=== PATIENT | male | born 1965 | race Caucasian/White ===

== ENCOUNTER 2016-10-12 19:36 | Emergency (ER) | payer OTHER, SELFPAY ==
[~2016-10-12] VITALS: Ht 172.7 cm; Wt 63.6 kg
[2016-10-12 19:37] VITALS: BP 110/77
[2016-10-12] MEDS ORDERED: TOPR100T PO (20:01)
[2016-10-12] MEDS ORDERED: OMEP20CA3 PO (20:01)
[2016-10-12] MEDS ORDERED: XANA0.25 PO (20:01)
== END 2016-10-12 20:40 | disposition home or self-care (01) ==
LOC: M ED 19:36
DX: F10.129 Alcohol abuse with intoxication, unspecified (principal)

== ENCOUNTER 2016-11-15 18:16 | Emergency (ER) | payer OTHER ==
[~2016-11-15] VITALS: Ht 172.7 cm; Wt 68.2 kg
[2016-11-15 18:16] VITALS: BP 136/98
[~2016-11-15 18:16] MED LIST: OMEP20CA3 PO; TOPR100T PO; XANA0.25 PO
[2016-11-15] MEDS ORDERED: HYDR-3713 (18:26)
[2016-11-15] MEDS ORDERED: ZOLP10TA2 (18:26)
--- NOTE | 2016-11-15 23:20 | REP ---
MANDIBLE COMPLETE: 11/15/2016. Clinical history: Trauma. Findings: Six views are provided. The alveolar ridge, rami, condyles and the submental region of the mandible were grossly intact. I see no definite subluxation or dislocation of the condyles from the condylar fossa. I see dentition for both the alveolar ridges of the mandible and maxilla. Degenerative changes are seen in the cervical spine. Septum is generally midline. No orbital floor blowout fracture or air-fluid levels in the maxillary sinuses. The frontal and ethmoid sinuses are grossly intact. Impression: 1. No gross evidence for mandibular fracture. The nasal septum was midline. There is no visible fracture orbital floors, nasal bones. No air-fluid levels in the sinuses on these images. Signed by Ihsan Carrasco MD 11/20/2016 01:37 P
== END 2016-11-15 20:40 | disposition left against medical advice (07) ==
LOC: M ED 18:16
DX: S00.83XA Contusion of other part of head, initial encounter (principal); S80.211A Abrasion, right knee, initial encounter; W01.0XXA Fall on same level from slipping, tripping and stumbling without subsequent striking against object, initial encounter; Y92.89 Other specified places as the place of occurrence of the external cause; Y93.89 Activity, other specified; Y99.8 Other external cause status; F10.10 Alcohol abuse, uncomplicated

== ENCOUNTER 2017-01-12 13:34 | Outpatient (RCR) | payer OTHER ==
[~2017-01-12 13:34] MED LIST changes: +HYDR-3713; +ZOLP10TA2
== END 2017-01-25 ==
LOC: M OUTALCOH 13:34
PROVIDERS: ATTEND Psychiatry & Neurology Psychiatry
DX: F10.20 Alcohol dependence, uncomplicated (principal); F17.200 Nicotine dependence, unspecified, uncomplicated

== ENCOUNTER 2017-01-26 11:00 | Outpatient (RCR) | payer OTHER | END 2017-02-25 | LOC: M OUTALCOH 11:00 | DX: F10.20 Alcohol dependence, uncomplicated (principal); F17.200 Nicotine dependence, unspecified, uncomplicated ==

== ENCOUNTER 2018-01-19 22:59 | Emergency (ER) | payer OTHER ==
[2018-01-19] MEDS ORDERED: LORazepam 2 MG/ML VIAL (J2060) As Ordered (23:32)
[2018-01-19] MEDS ORDERED: HALOPERIDOL 5 MG/ML VIAL (J1630) As Ordered (23:32)
[2018-01-19 23:39] LABS: HEMATOCRIT 40.2 % (42.0-52.0); MEAN CORPUSCULAR HEMOGLOBIN 28.6 pg (27.0-33.0); MEAN CORPUSCULAR HGB CONC 34.8 g/dl (32.0-36.5); PLATELET COUNT, AUTOMATED 418 10^3/uL (150-450); RED CELL DISTRIBUTION WIDTH 12.3 % (11.5-14.5); WHITE BLOOD COUNT 8.9 10^3/uL (4.0-10.0)
[2018-01-19] MEDS: NS 1,000 ML IV (23:50)
[2018-01-19] MEDS: HALOPERIDOL 5 MG/ML VIAL (J1630) IM (23:50)
[2018-01-19] MEDS: diphenhydrAMINE INJ 50MG/ML VIAL (J1200) IM (23:50)
[2018-01-19] MEDS: LORazepam 2 MG/ML VIAL (J2060) IM (23:50)
[2018-01-20 00:14] LABS: ACETAMINOPHEN LEVEL < 2.0 UG/ML (10.0-30.0); ALBUMIN 3.8 GM/DL (3.2-5.2); ALBUMIN/GLOBULIN RATIO 0.95 (1.00-1.93); ALKALINE PHOSPHATASE 104 U/L (45-117); ALT/SGPT 28 U/L (12-78); ANION GAP 13 MEQ/L (8-16); AST/SGOT 49 U/L (7-37); BILIRUBIN,DIRECT < 0.1 MG/DL (0.0-0.2); BILIRUBIN,TOTAL 0.1 MG/DL (0.2-1.0); BLOOD UREA NITROGEN 11 MG/DL (7-18); CALCIUM LEVEL 8.5 MG/DL (8.5-10.1); CARBON DIOXIDE LEVEL 21 MEQ/L (21-32); CHLORIDE LEVEL 106 MEQ/L (98-107); CREATININE FOR GFR 0.96 MG/DL (0.70-1.30); ETHYL ALCOHOL (ETHANOL) 0.454 % (0.000-0.010); GLOMERULAR FILTRATION RATE > 60.0 (>56); GLUCOSE, FASTING 104 MG/DL (70-100); POTASSIUM SERUM 3.5 MEQ/L (3.5-5.1); SALICYLATE LEVEL 4.4 MG/DL (5.0-30.0); SODIUM LEVEL 140 MEQ/L (136-145); TOTAL PROTEIN 7.8 GM/DL (6.4-8.2)
[2018-01-20] MEDS: LORazepam 2 MG/ML VIAL (J2060) IV ×4 (00:42→02:00)
[2018-01-20 03:54] LABS: AMPHETAMINES LEVEL URINE NEGATIVE (NEGATIVE); BARBITURATES URINE NEGATIVE (NEGATIVE); BENZODIAZEPINES URINE NEGATIVE (NEGATIVE); CANNABINOIDS URINE NEGATIVE (NEGATIVE); COCAINE METABOLITE URINE NEGATIVE (NEGATIVE); METHADONE URINE NEGATIVE (NEGATIVE); OPIATES URINE NEGATIVE (NEGATIVE); PHENCYCLIDINE URINE NEGATIVE (NEGATIVE)
== END 2018-01-20 16:29 | disposition home or self-care (01) ==
LOC: M ED 22:59
DX: F10.129 Alcohol abuse with intoxication, unspecified (principal); Z79.899 Other long term (current) drug therapy; Z91.040 Latex allergy status
CPT/HCPCS: J1200

== ENCOUNTER 2018-01-26 04:42 | Emergency (ER) | payer OTHER ==
[2018-01-26] MEDS: TETANUS/DIPHTHERIA TOX ADSORB ADULT 0.5ML SYR/VIAL (90714) IM (06:00)
[2018-01-26] MEDS: DERMABOND TOPICAL SKIN ADHESIVE TOP (06:00)
== END 2018-01-26 07:48 | disposition home or self-care (01) ==
LOC: M ED 04:42
DX: S01.81XA Laceration without foreign body of other part of head, initial encounter (principal); Z72.89 Other problems related to lifestyle; W01.0XXA Fall on same level from slipping, tripping and stumbling without subsequent striking against object, initial encounter; Y35.893A Legal intervention involving other specified means, suspect injured, initial encounter; Y92.410 Unspecified street and highway as the place of occurrence of the external cause; I10 Essential (primary) hypertension; K21.9 Gastro-esophageal reflux disease without esophagitis; F32.9 Major depressive disorder, single episode, unspecified; Z91.040 Latex allergy status; Z79.899 Other long term (current) drug therapy; Z79.2 Long term (current) use of antibiotics
CPT/HCPCS: 70450

== ENCOUNTER → 2018-07-02 | Outpatient (CLI) | payer MEDICAID, SELFPAY ==
[~2018-07-02] MED LIST changes: +ACET-683 PO; +AMOX500C; +HYDR-3363 PO; +IBUP-1022 PO; +IBUP80TA; +LISI-538 PO; +VENL100T; +VOLT1GEL15 TOP
== END ==
LOC: M OUTALCOH 11:37
PROVIDERS: ATTEND Psychiatry & Neurology Psychiatry
DX: F10.20 Alcohol dependence, uncomplicated (principal)

== ENCOUNTER 2018-07-03 16:50 | Inpatient (IN) | payer MEDICAID ==
[~2018-07-03] VITALS: Ht 172.7 cm; Wt 88.1 kg
[~2018-07-03 16:50] MED LIST changes: -ACET-683 PO; -IBUP-1022 PO; -VOLT1GEL15 TOP
[2018-07-03] MEDS ORDERED: HumuLIN R (REGULAR) INSULIN (NovoLIN R) **100U/ML** PER UNIT IV STA (17:17)
[2018-07-03] MEDS ORDERED: SODIUM BICARBONATE 8.4% INJ 50 ML SYRINGE IV STA (17:17)
[2018-07-03 17:19] LABS: BASO # 0.1 10^3/uL (0.0-0.2); BASO % 0.3 % (0.0-1.0); HEMATOCRIT 39.3 % (42.0-52.0); HEMOGLOBIN 13.3 g/dl (13.5-17.5); LYMPH # 1.2 10^3/uL (1.5-4.5); LYMPH % 6.4 % (24.0-44.0); MEAN CORPUSCULAR HEMOGLOBIN 28.9 pg (27.0-33.0); MEAN CORPUSCULAR HGB CONC 33.8 g/dl (32.0-36.5); MEAN CORPUSCULAR VOLUME 85.2 fl (80.0-96.0); MONO # 0.5 10^3/uL (0.0-0.8); MONO % 2.5 % (0.0-5.0); NEUTROPHILS # 16.8 10^3/uL (1.8-7.7); PLATELET COUNT, AUTOMATED 449 10^3/uL (150-450); RED BLOOD COUNT 4.61 10^6/uL (4.30-6.10); WHITE BLOOD COUNT 18.7 10^3/uL (4.0-10.0)
[2018-07-03] MEDS ORDERED: FUROSEMIDE 40 MG/4 ML VIAL (J1940) IV ONE (17:30)
[2018-07-03] MEDS ORDERED: ALBUTEROL SULFATE 2.5 MG/0.5 ML INH NEB SOLN NEB ONE (17:30)
[2018-07-03] MEDS ORDERED: CALCIUM CHLORIDE 10% 1 GM in D5W 100 ML IV ONE (17:30)
[2018-07-03] MEDS ORDERED: PATIROMER SORBITEX CALCIUM 8.4 GM POWDER PACKET (VELTASSA) PO ONE (17:30)
--- NOTE | 2018-07-03 17:45 | REP ---
REASON FOR EXAM: Chest pain. COMPARISON: 11/06/2006, a two view exam. FINDINGS: The technique utilized in obtaining the radiograph has magnified the cardiac silhouette and accentuated the interstitial markings. The superior mediastinal structures are midline. The cardiac silhouette is unremarkable in size, shape, and position. The diaphragmatic surfaces of the lungs are regular, and the costophrenic angles are clear. The pulmonary mata are clear. The imaged osseous structures are intact. No significant change from the prior exam other than technique. IMPRESSION: There is no acute cardiopulmonary disease. Electronically Signed by Jaime Rankin DO 07/03/2018 05:53 P
[2018-07-03 17:46] LABS: ALBUMIN 4.4 GM/DL (3.2-5.2); ALT/SGPT 31 U/L (12-78); BILIRUBIN,DIRECT 0.1 MG/DL (0.0-0.2); BILIRUBIN,TOTAL 0.3 MG/DL (0.2-1.0); BLOOD UREA NITROGEN 32 MG/DL (7-18); CARBON DIOXIDE LEVEL 20 MEQ/L (21-32); CHLORIDE LEVEL 96 MEQ/L (98-107); CREATININE FOR GFR 4.47 MG/DL (0.70-1.30); GLOMERULAR FILTRATION RATE 14.8 (>56); GLUCOSE, FASTING 209 MG/DL (70-100); LIPASE 135 U/L (73-393); SODIUM LEVEL 128 MEQ/L (136-145); TOTAL PROTEIN 7.3 GM/DL (6.4-8.2); TROPONIN I 0.27 NG/ML (< 0.10)
[2018-07-03 18:05] LABS: AMPHETAMINES LEVEL URINE NEGATIVE (NEGATIVE); BARBITURATES URINE NEGATIVE (NEGATIVE); BENZODIAZEPINES URINE NEGATIVE (NEGATIVE); CANNABINOIDS URINE NEGATIVE (NEGATIVE); COCAINE METABOLITE URINE NEGATIVE (NEGATIVE); METHADONE URINE NEGATIVE (NEGATIVE); OPIATES URINE NEGATIVE (NEGATIVE); PHENCYCLIDINE URINE NEGATIVE (NEGATIVE)
--- NOTE | 2018-07-03 18:10 | REP ---
HISTORY: Chest pain. COMPARISON: There are no prior chest CTs for comparison. The examination is limited by the lack of intravenous contrast administration. Limited evaluation of the mediastinum and pulmonary jossue show non-enlarged lymph nodes in the mediastinum. There are no pleural or pericardial effusions. Bone window technique throughout the exam shows the osseous structures to be within normal limits. Evaluation of the lung mata shows no abnormal nodules, masses or opacities. IMPRESSION: Multiple non-enlarged mediastinal lymph nodes without priors for comparison and without intravenous contrast for better evaluation of the pulmonary jossue. Followup is suggested. Electronically Signed by Jaime Rankin DO 07/04/2018 01:11 P
--- NOTE | 2018-07-03 18:10 | REP ---
REASON: Chest pain. COMPARISON: Abdominal CT 05/13/2007 which was normal. The lack of intravenous contrast and oral bowel preparatory contrast administration significantly decreases the sensitivity of the exam. There is no gross change seen involving the liver, spleen, adrenal glands, pancreas, or kidneys. No gross changes seen involving the abdominal aorta. Shotty paraortic lymph nodes are present without retroperitoneal adenopathy. There is no free fluid or free air in the abdomen. Limited evaluation of the bowel loops and their mesenteries show no gross abnormalities. CT PELVIS: A Talamantes balloon is seen in the urinary bladder decompressing it. The bowel loops and their mesenteries are grossly within normal limits. No free fluid or free air is seen in the pelvis. Bone window technique throughout the exam shows the osseous structures to be within normal limits and essentially unchanged from the prior exam. IMPRESSION:No acute intraabdominal or intrapelvic disease process is noted on this limited exam. There does not appear to be a significant change compared to the prior exam. Electronically Signed by Jaime Rankin DO 07/04/2018 01:11 P
[2018-07-03 18:16] LABS: CPK CREATINE PHOSPHOKINASE 3558 U/L (39-308); ETHYL ALCOHOL (ETHANOL) < 0.003 % (0.000-0.010); MB/CK RELATIVE INDEX 0.71 (< OR =4); POTASSIUM SERUM 6.5 MEQ/L (3.5-5.1)
[2018-07-03 18:39] LABS: CALCIUM LEVEL < 5.0 MG/DL (8.5-10.1)
[2018-07-03] MEDS ORDERED: IBUP-1022 PO (20:14)
[2018-07-03] MEDS ORDERED: VOLT1GEL15 TOP (20:14)
[2018-07-03] MEDS ORDERED: ACET-683 PO (20:14)
[2018-07-03] MEDS ORDERED: PIPERACILLIN/TAZOBACTAM SOD 2.25 GM in D5W MINI-BAG PLUS 50 ML IV ONE (20:30)
[2018-07-03] MEDS ORDERED: CALCIUM GLUCONATE 1,000 MG in D5W MINI-BAG PLUS 100 ML IV ONE ×4 (20:30)
[2018-07-03] MEDS ORDERED: NS 1,000 ML IV ONE ×2 (20:30)
--- NOTE | 2018-07-03 20:39 | ECGEPIP ---
Stationary ECG Study [facility] - ED Test Date: 2018-07-03 Pat Name: TIM MILAN Department: Room: - Gender: M [employer]: : 1965 Requested By: GIOVANNA Peguero Order Number: [id number] Reading MD: Dari Castro Measurements Intervals Marshall Rate: 113 P: 236 PA: 200 QRS: 158 QRSD: 108 T: 57 QT: 356 QTc: 489 Interpretive Statements ECTOPIC ATRIAL TACHYCARDIA INDETERMINATE AXIS PATTERN CONSISTENT WITH PULMONARY DISEASE INCOMPLETE RIGHT BUNDLE BRANCH BLOCK HYPERACUTE T WAVES, CLINICAL CORRELATION Electronically Signed On 07-03-2018 20:38:58 EDT by Dari Castro
[2018-07-03] MEDS ORDERED: PANTOPRAZOLE 40MG INJ (PROTONIX) (C9113) IV SCH (21:00)
[2018-07-03] MEDS ORDERED: ACETAMINOPHEN TAB 650MG DOSE (2X325MG) PO PRN (21:15)
[2018-07-03 21:55] LABS: CALCIUM LEVEL 5.5 MG/DL (8.5-10.1); CREATININE FOR GFR 3.99 MG/DL (0.70-1.30); GLOMERULAR FILTRATION RATE 16.9 (>56); POTASSIUM SERUM 4.2 MEQ/L (3.5-5.1); THYROID STIMULATING HORMONE 1.62 uIU/ML (0.358-3.740); THYROXINE (T4) 8.3 UG/DL (4.5-12.0); TROPONIN I 0.99 NG/ML (< 0.10)
[2018-07-03] MEDS: VANCOMYCIN 1000 MG/20 ML VIAL (J3370) IP ONE ×2 (22:00→22:42)
[2018-07-03] MEDS ORDERED: NOREPINEPHRINE BITARTRATE 8 MG in D5W 492 ML IV SCH (22:00)
[2018-07-03] MEDS ORDERED: LR 1,000 ML IV SCH (22:00)
--- NOTE | 2018-07-03 22:11 | HPEPDOC ---
General Date of Admission July 03, 2018 at 19:43 Chief Complaint The patient is a 53-year-old male admitted with a reason for visit of Arf D/T Rh abdomyolysis. History of Present Illness 53 yo male with PMH of HTN presents to [facility] Scheduled Diclofenac Sodium (Voltaren) 100 Gm Gel..gram., 1 APLCT TOP DAILY, (Reported) APPLIES TO SHOULDER Lisinopril (Lisinopril) 20 Mg Tab, 20 MG PO DAILY, (Reported) Omeprazole (Omeprazole) 20 Mg Cap, 20 MG PO Q2D, (Reported) Scheduled PRN Acetaminophen (Acetaminophen) 500 Mg Tablet, 1,000 MG PO Q6H PRN for PAIN, (Reported) Hydroxyzine HCl (Hydroxyzine HCl) 25 Mg Tab, 25 MG PO Q6H PRN for ANXIETY/AGITATION, (Reported) Ibuprofen (Ibuprofen) 600 Mg Tablet, 600 MG PO TID PRN for PAIN, (Reported) Allergies Coded Allergies: latex (Verified Allergy, Unknown, 07/03/18) Vital Signs Vital Signs Date Time Temp Pulse Resp B/P (MAP) Pulse Ox O2 Delivery O2 Flow Rate FiO2 07/03/18 21:37 111 20 86/51 (63) 99 Nasal Cannula 2.0 07/03/18 20:11 100.3 Laboratory Data Labs 24H Laboratory Tests 2 07/03/18 16:59: Immature Granulocyte % (Auto) 0.8, White Blood Count 18.7H, Red Blood Count 4.6 1, Hemoglobin 13.3L, Hematocrit 39.3L, Mean Corpuscular Volume 85.2, Mean Corpuscular Hemoglobin 28.9, Mean Corpuscular Hemoglobin Concent 33.8, Red Cell Distribution Width 13.1, Platelet Count 449, Neutrophils (%) (Auto) 90.0H, Lymphocytes (%) (Auto) 6.4L, Monocytes (%) (Auto) 2.5, Eosinophils (%) (Auto) 0.0, Basophils (%) (Auto) 0.3, Neutrophils # (Auto) 16.8H, Lymphocytes # (Auto) 1.2L, Monocytes # (Auto) 0.5, Eosinophils # (Auto) 0.0, Basophils # (Auto) 0.1, Nucleated Red Blood Cells % (auto) 0.0, Anion Gap 12, Glomerular Filtration Rate 14.8L, Calcium Level < 5.0*L, Aspartate Amino Transf (AST/SGOT) 78H, Alanine Aminotransferase (ALT/SGPT) 31, Alkaline Phosphatase 109, Total Bilirubin 0.3, Direct Bilirubin 0.1, Total Creatine Kinase 3558H, Creatine Kinase MB 25.0H, Creatine Kinase MB Relative Index 0.71, Troponin I 0.27H, Total Protein 7.3, Albumin 4.4, Albumin/Globulin Ratio 1.52, Lipase 135, Ethyl Alcohol Level < 0.003 07/03/18 17:15: POC Glucose (Misc Panel) 200H, POC Sodium (Misc Panel) 131L, POC Potassium (Misc Panel) 6.5*H, POC Chloride (Misc Panel) 97L, POC Total CO2 (Misc Panel) 18.0L, POC Blood Urea Nitrogen (Misc Panel 30H, POC Ionized Calcium (Misc Panel) 1.8*L, POC Creatinine (Misc Panel) 4.5H, POC Hematocrit (Misc Panel) 36.0L 07/03/18 17:19: Urine Color YELLOW, Urine Appearance CLOUDYH, Urine pH 5.0, Urine Specific [place] 1.010, Urine Protein 1+H, Urine Glucose (UA) NEGATIVE, Urine Ketones NEGATIVE, Urine Blood 1+H, Urine Nitrite NEGATIVE, Urine Bilirubin NEGATIVE, Urine Urobilinogen 0.2, Urine Leukocyte Esterase NEGATIVE, Urine WBC (Auto) 3, Urine RBC (Auto) 9H, Urine Hyaline Casts (Auto) 4, Urine Bacteria (Auto) 1+H, Urine Squamous Epithelial Cells 0, Urine Transitional Epithelial Cells 5, Urine Mucus (Auto) SMALL, Urine Sperm (Auto) , Urine Amphetamines Screen NEGATIVE, Urine Benzodiazepines Screen NEGATIVE, Urine Opiates Screen NEGATIVE, Urine Methadone Screen NEGATIVE, Urine Barbiturates Screen NEGATIVE, Urine Phencyclidine Screen NEGATIVE, Urine Cocaine Metabolite Screen NEGATIVE, Urine Cannabinoids Screen NEGATIVE 07/03/18 20:26: Anion Gap 10, Glomerular Filtration Rate 16.9L, Calcium Level 5.5*L, Troponin I 0.99#H, Blood Urea Nitrogen 33H, Creatinine 3.99H, Sodium Level 132L, Potassium Level 4.2#, Chloride Level 102, Carbon Dioxide Level 20L, Thyroid Stimulating Hormone (TSH) 1.620, Free Thyroxine Index 3.0, Thyroxine (T4) 8.3, Triiodothyronine (T3) Uptake 36 CBC/BMP Laboratory Tests 07/03/18 16:59 Red Blood Count 4.61, Mean Corpuscular Volume 85.2, Mean Corpuscular Hemoglobin 28.9, Mean Corpuscular Hemoglobin Concent 33.8, Red Cell Distribution Width 13.1, Neutrophils (%) (Auto) 90.0 H, Lymphocytes (%) (Auto) 6.4 L, Monocytes (%) (Auto) 2.5, Eosinophils (%) (Auto) 0.0, Basophils (%) (Auto) 0.3, Neutrophils # (Auto) 16.8 H, Lymphocytes # (Auto) 1.2 L, Monocytes # (Auto) 0.5, Eosinophils # (Auto) 0.0, Basophils # (Auto) 0.1 07/03/18 20:26 Calcium Level 5.5 *L Microbiology Microbiology 07/03/18 Blood Culture, Received Pending 07/03/18 Blood Culture, Received Pending GIA GUPTA DO July 03, 2018 22:11
[2018-07-03] MEDS ORDERED: NS 1,000 ML IV SCH (22:15)
[2018-07-03] MEDS: MAG SULF 1GM/100ML (MAG RUN) 1 GM in APPROPRIATE DILUENT 1 EA IV SCH (22:15)
[2018-07-03] MEDS ORDERED: THIAMINE HCL 200 MG/2 ML VIAL (J3411) IM ONE (22:30)
[2018-07-03 22:34] LABS: MAGNESIUM LEVEL 1.4 MG/DL (1.8-2.4)
[2018-07-03 22:47] LABS: ABG HCO3 14.6 MEQ/L (22.0-26.0); ABG O2 SATURATION 99.8 % (95.0-99.0); ABG PARTIAL PRESSURE CO2 28.1 mmHg (35.0-45.0); ABG PARTIAL PRESSURE O2 304.3 mmHg (75.0-100.0); ABG STANDARD HCO3 16.5 MEQ/L (22.0-26.0); ABG TOTAL CO2 15.4 MEQ/L (22.0-29.0); ABG pH (ARTERIAL) 7.333 UNITS (7.350-7.450)
[2018-07-03 23:33] LABS: CALCIUM LEVEL 5.3 MG/DL (8.5-10.1); CREATININE FOR GFR 3.32 MG/DL (0.70-1.30); GLOMERULAR FILTRATION RATE 20.8 (>56); POTASSIUM SERUM 3.9 MEQ/L (3.5-5.1); TROPONIN I 1.75 NG/ML (< 0.10)
[2018-07-03 23:35] VITALS: BP 94/51
--- NOTE | 2018-07-03 23:35 | HPEPDOC ---
General Date of Admission July 03, 2018 at 19:43 Chief Complaint The patient is a 53-year-old male admitted with a reason for visit of Arf D/T Rh abdomyolysis. Source: Patient, RN/MD History of Present Illness Mr. Worthington is a 53 years old man with hx/o HTN and alcohol abuse. As per pt, he has been to rehab and has stayed clean since January. He was brought to ER for evaluation of chest pain. He was not able to describe his problems in details due to severe sick feeling, but did mention that chest pain resolved after treatment in the ER. He denies SOB, headache, photophobia, neck pain, or abdominal pain. In the ER several critical findings were noted and several events occurred. He was noted to be in SVT with HR of 220/min with hypotension on arrival. Shock was delivered. But later, review of rhythm showed sinus rhythm with tall T wave (the same size of R wave) which made it look like a SVT, while actual HR was at 110/min. Pt was noted to have acute renal failure with Serum Cr of 4.47, K 6.5, CK 3558, Ca <5. Pt was given IV hydration, with bolus, along with IV Calcium, Bicarb, D50 and insulin. He also received a dose of Lasix, and output out 750 cc of urine. Pt spoked fever of 100.[address] of chest/abd/pelv was unremarkable, as well a skin/soft tissue, neuro and other exams. Due to persistent hypotension and leucocytosis (WBC 18.7K), pt was empirically started on IV Vanco and Zosyn; blood cultures were sent. After 4L of fluid bolus, pt was started on Levophed. Cat Scan Tech was consulted. I spoke with Dr. Cochran. Around 10pm, pt went into V-tach in the ER. Rhythm strip looked like Torsades. Pt was shocked, and given 2 gram of IV Mag. A stat serum Mg level was 1.4. I consulted with Dr. Healy; he recommended treating underlying sepsis which was the cause of arrhythmia. Troponin 0.27, 0.99. EKG: sinus rhythm with tall T waves, not significant ST changes. Repeat Trop 1.7. GI panel was snet due to loose stool. It is negative. Home Medications Scheduled Diclofenac Sodium (Voltaren) 100 Gm Gel..gram., 1 APLCT TOP DAILY, (Reported) APPLIES TO SHOULDER Lisinopril (Lisinopril) 20 Mg Tab, 20 MG PO DAILY, (Reported) Omeprazole (Omeprazole) 20 Mg Cap, 20 MG PO Q2D, (Reported) Scheduled PRN Acetaminophen (Acetaminophen) 500 Mg Tablet, 1,000 MG PO Q6H PRN for PAIN, (Reported) Hydroxyzine HCl (Hydroxyzine HCl) 25 Mg Tab, 25 MG PO Q6H PRN for ANXIETY/AGITATION, (Reported) Ibuprofen (Ibuprofen) 600 Mg Tablet, 600 MG PO TID PRN for PAIN, (Reported) Allergies Coded Allergies: latex (Verified Allergy, Unknown, 07/03/18) Past Medical History Medical History HTN Surgical History Cholecystectomy Family History Significant Family History: No pertinent family hx Social History * Smoker: current smoker Alcohol: other (heavy drinker, quit in Jan) Drugs: denies A-FIB/CHADSVASC A-FIB History Current/History of A-Fib/PAF?: No Review of Systems Constitutional: Reports: Chills, Fever, Weakness Eyes: Denies: Pain ENT: Denies: Head Aches Skin: Denies: Rash Pulmonary: Denies: Dyspnea, Cough Cardiovascular: Reports: Chest Pain; Denies: Edema Gastrointestinal: Reports: Diarrhea; Denies: Nausea, Vomiting Genitourinary: Denies: Dysuria Musculoskeletal: Denies: Neck Pain, Back Pain Neurological: Reports: Weakness Psych: Reports: Mood Normal Physical Examination General Exam: Positive: Alert, Cooperative, No Acute Distress Eye Exam: Positive: PERRLA ENT Exam: Positive: Atraumatic Neck Exam: Positive: Supple, Other (no pain on flexion); Negative: JVD Chest Exam: Positive: Clear to auscultation, Normal air movement Heart Exam: Positive: Rate Normal, Regular Rhythm Abdomen Exam: Positive: Normal bowel sounds, Soft, Tenderness Extremity Exam: Negative: Edema Skin Exam: Negative: Rash, Breakdown, Lesion Neuro Exam: Positive: Normal Speech, Strength at 5/5 X4 ext, Normal Tone Psych Exam: Positive: Mental status NL, Mood NL Vital Signs Vital Signs Date Time Temp Pulse Resp B/P (MAP) Pulse Ox O2 Delivery O2 Flow Rate FiO2 07/03/18 21:37 111 20 86/51 (63) 99 Nasal Cannula 2.0 07/03/18 20:11 100.3 Laboratory Data Labs 24H Laboratory Tests 2 07/03/18 16:59: Immature Granulocyte % (Auto) 0.8, White Blood Count 18.7H, Red Blood Count 4.61, Hemoglobin 13.3L, Hematocrit 39.3L, Mean Corpuscular Volume 85.2, Mean Corpuscular Hemoglobin 28.9, Mean Corpuscular Hemoglobin Concent 33.8, Red Cell Distribution Width 13.1, Platelet Count 449, Neutrophils (%) (Auto) 90.0H, Lymphocytes (%) (Auto) 6.4L, Monocytes (%) (Auto) 2.5, Eosinophils (%) (Auto) 0.0, Basophils (%) (Auto) 0.3, Neutrophils # (Auto) 16.8H, Lymphocytes # (Auto) 1.2L, Monocytes # (Auto) 0.5, Eosinophils # (Auto) 0.0, Basophils # (Auto) 0.1, Nucleated Red Blood Cells % (auto) 0.0, Anion Gap 12, Glomerular Filtration Rate 14.8L, Calcium Level < 5.0*L, Aspartate Amino Transf (AST/SGOT) 78H, Alanine Aminotransferase (ALT/SGPT) 31, Alkaline Phosphatase 109, Total Bilirubin 0.3, Direct Bilirubin 0.1, Total Creatine Kinase 3558H, Creatine Kinase MB 25.0H, Creatine Kinase MB Relative Index 0.71, Troponin I 0.27H, Total Protein 7.3, Albumin 4.4, Albumin/Globulin Ratio 1.52, Lipase 135, Ethyl Alcohol Level < 0.003 07/03/18 17:15: POC Glucose (Misc Panel) 200H, POC Sodium (Misc Panel) 131L, POC Potassium (Misc Panel) 6.5*H, POC Chloride (Misc Panel) 97L, POC Total CO2 (Misc Panel) 18.0L, POC Blood Urea Nitrogen (Misc Panel 30H, POC Ionized Calcium (Misc Panel) 1.8*L, POC Creatinine (Misc Panel) 4.5H, POC Hematocrit (Misc Panel) 36.0L 07/03/18 17:19: Urine Color YELLOW, Urine Appearance CLOUDYH, Urine pH 5.0, Urine Specific [place] 1.010, Urine Protein 1+H, Urine Glucose (UA) NEGATIVE, Urine Ketones NEGATIVE, Urine Blood 1+H, Urine Nitrite NEGATIVE, Urine Bilirubin NEGATIVE, Urine Urobilinogen 0.2, Urine Leukocyte Esterase NEGATIVE, Urine WBC (Auto) 3, Urine RBC (Auto) 9H, Urine Hyaline Casts (Auto) 4, Urine Bacteria (Auto) 1+H, Urine Squamous Epithelial Cells 0, Urine Transitional Epithelial Cells 5, Urine Mucus (Auto) SMALL, Urine Sperm (Auto) , Urine Random Sodium 19, Urine Amphetamines Screen NEGATIVE, Urine Benzodiazepines Screen NEGATIVE, Urine Opiates Screen NEGATIVE, Urine Methadone Screen NEGATIVE, Urine Barbiturates Scr een NEGATIVE, Urine Phencyclidine Screen NEGATIVE, Urine Cocaine Metabolite Screen NEGATIVE, Urine Cannabinoids Screen NEGATIVE 07/03/18 20:26: Anion Gap 10, Glomerular Filtration Rate 16.9L, Calcium Level 5.5*L, Troponin I 0.99#H, Blood Urea Nitrogen 33H, Creatinine 3.99H, Sodium Level 132L, Potassium Level 4.2#, Chloride Level 102, Carbon Dioxide Level 20L, Magnesium Level 1.4L, Thyroid Stimulating Hormone (TSH) 1.620, Free Thyroxine Index 3.0, Thyroxine (T4) 8.3, Triiodothyronine (T3) Uptake 36 07/03/18 22:35: Blood Gas Bicarbonate Standard 16.5L, Arterial Blood pH 7.333L, Arterial Blood Partial Pressure CO2 28.1L, Arterial Blood Partial Pressure O2 304.3H, Arterial Blood Total CO2 15.4L, Arterial Blood HCO3 14.6L, Arterial Blood Base Excess -10.0L, Arterial Blood Oxygen Saturation 99.8H 07/03/18 22:46: CBC/BMP Laboratory Tests 07/03/18 16:59 Red Blood Count 4.61, Mean Corpuscular Volume 85.2, Mean Corpuscular Hemoglobin 28.9, Mean Corpuscular Hemoglobin Concent 33.8, Red Cell Distribution Width 13.1, Neutrophils (%) (Auto) 90.0 H, Lymphocytes (%) (Auto) 6.4 L, Monocytes (%) (Auto) 2.5, Eosinophils (%) (Auto) 0.0, Basophils (%) (Auto) 0.3, Neutrophils # (Auto) 16.8 H, Lymphocytes # (Auto) 1.2 L, Monocytes # (Auto) 0.5, Eosinophils # (Auto) 0.0, Basophils # (Auto) 0.1 07/03/18 20:26 Calcium Level 5.5 *L Microbiology Microbiology 07/03/18 Blood Culture, Received Pending 07/03/18 Blood Culture, Received Pending 07/03/18 Gastrointestinal Tract Panel (PCR), Received Pending Assessment/Plan Septic Shock of Unknown Etiology with Circulatory and Renal Failure, Rhabdomyolysis, Torsades V-tach - Admit to ICU; Cat Scan Tech and Cardiology consults - IV Fluid, Vasopressor to keep MAP>65 - Empiric Antibiotics, IV Vanco and Zosyn, renally dosed - f/u c/s - Monitor multi-organ function; I/O - Monitor electrolytes NSTEMI - Not sure primary NSTEMI or type 2 due to sepsis and renal failure - IV Heparin, ASA, Plavix, Statin - Echo in the morning Plan / VTE VTE Prophylaxis Ordered?: No (Pt is now placed on IV Heparin) ARUNA CAREY MD July 03, 2018 23:35
--- NOTE | 2018-07-03 23:36 | PHACANCOPD ---
PHARMACY VANCOMYCIN DOSING Pt Demographics Demographics Patient Age:53 , Weight:88.100 , Gender: male Adjusted Body Weight Date: 07/03/18, Adjusted Body Weight: Kg Events Past 24 Hours Events Past 24 Hours: NO: Dialysis, Diuretic Therapy, Change in CrCl, Fever, Elevation in WBC, Pending Diagnostics, Pending Procedures, Other Vancomycin Vancomycin Target Ranges: 10-20 mcg/ml Vancomycin Load Y/N: Yes Load Dose Date Time Vancomycin Load Dose: 2000mg Date: 07-04 Time: 0000 Vancomycin Dose Date: 07/03/18. Current Vancomycin Dose: [1000mg q24h] Intermittent Dosing?: No Labs Labs Item Value Date Time White Blood Count 18.7 10^3/uL H 07/03/189 Creatinine 3.99 MG/DL H 07/03/182025 Vital Signs Label Value Date Time Patient Temperature 100.3 degrees F 07/03/182010 Temperature Source Temporal 07/03/182010 Micro Microbiology 07/03/18 Blood Culture, Received Pending 07/03/18 Blood Culture, Received Pending 07/03/18 Gastrointestinal Tract Panel (PCR), Received Pending Creatinine Clearance Date:07/03/18. Creatinine Clearance: [~20]. Pending Labs Trough 05-10 @2300 Assessment and Plan Maintaining Current Dose?: Yes Reason for dose change: No Dose Change Pharmacist Note Pharmacist Note Date: 07/03/18. Pharmacist note:Will monitor and make adjustments as needed. MIRZA BAUTISTA PHARMACY July 03, 2018 23:36
[2018-07-03 23:45] VITALS: BP 94/55
[2018-07-03 23:50] VITALS: BP 95/54
[2018-07-04] VITALS (21 sets, daily range): BP systolic 88–117; BP diastolic 50–75
[2018-07-04] MEDS ORDERED: VANCOMYCIN HCL 1,000 MG, VIAL MATE ADAPTER 1 EACH in D5W 250 ML IV SCH ×3
[2018-07-04] MEDS: ASPIRIN 325 MG TAB PO STA ×2 (00:30→01:01)
[2018-07-04] MEDS ORDERED: MAGNESIUM SULFATE 1GM/2ML (8MEQ/2ML) VIAL (J3475) ONE (00:30)
[2018-07-04] MEDS ORDERED: VANCOMYCIN HCL 1,000 MG, VIAL MATE ADAPTER 1 EACH in D5W 250 ML IV ONE (00:30)
[2018-07-04] MEDS ORDERED: CLOPIDOGREL 300 MG TAB (PLAVIX) PO STA (00:33)
[2018-07-04] MEDS ORDERED: HEPARIN DRIP 25,000 UNITS in APPROPRIATE DILUENT 1 EA IV SCH ×2 (00:34→01:53)
[2018-07-04] MEDS ORDERED: HEPARIN SOD (PORCINE) 5000 UNITS/ML VIAL IV ONE (00:45)
[2018-07-04] MEDS ORDERED: ATORVASTATIN 20 MG TAB PO ONE (00:45)
[2018-07-04] MEDS ORDERED: HEPARIN SOD (PORCINE) 5000 UNITS/ML VIAL IV PRN (00:45)
[2018-07-04] MEDS: MAG SULF 1GM/100ML (MAG RUN) 1 GM in APPROPRIATE DILUENT 1 EA IV SCH (01:00)
[2018-07-04 01:25] LABS: INR 1.28; PROTHROMBIN TIME 16.2 SECONDS (12.1-14.4)
[2018-07-04 01:26] LABS: PARTIAL THROMBOPLASTIN TIME 42.7 SECONDS (25.4-37.6)
[2018-07-04] MEDS ORDERED: NS 0.45% 1,000 ML IV SCH (01:45)
[2018-07-04 02:20] LABS: MAGNESIUM LEVEL 2.4 MG/DL (1.8-2.4)
[2018-07-04] MEDS ORDERED: SODIUM CHLORIDE 0.9% INJ 10 ML SYR IV PRN (04:30)
[2018-07-04 04:56] LABS: HEMATOCRIT 31.9 % (42.0-52.0); MEAN CORPUSCULAR HGB CONC 33.2 g/dl (32.0-36.5); MEAN CORPUSCULAR VOLUME 87.2 fl (80.0-96.0); RED BLOOD COUNT 3.66 10^6/uL (4.30-6.10); WHITE BLOOD COUNT 9.4 10^3/uL (4.0-10.0)
[2018-07-04 05:00] LABS: HEMOGLOBIN 10.6 g/dl (13.5-17.5); PLATELET COUNT, AUTOMATED 252 10^3/uL (150-450)
[2018-07-04 05:46] LABS: ALBUMIN 2.8 GM/DL (3.2-5.2); BILIRUBIN,DIRECT 0.1 MG/DL (0.0-0.2); BILIRUBIN,TOTAL 0.2 MG/DL (0.2-1.0); CALCIUM LEVEL 6.5 MG/DL (8.5-10.1); CREATININE FOR GFR 2.52 MG/DL (0.70-1.30); GLOMERULAR FILTRATION RATE 28.6 (>56); MAGNESIUM LEVEL 2.9 MG/DL (1.8-2.4); MB/CK RELATIVE INDEX 0.64 (< OR =4); PHOSPHORUS LEVEL 4.3 MG/DL (2.5-4.9); POTASSIUM SERUM 4.2 MEQ/L (3.5-5.1); TOTAL PROTEIN 6.3 GM/DL (6.4-8.2); TROPONIN I 5.94 NG/ML (< 0.10)
[2018-07-04] MEDS ORDERED: PIPERACILLIN/TAZOBACTAM SOD 2.25 GM in D5W MINI-BAG PLUS 50 ML IV SCH (06:00)
[2018-07-04] MEDS ORDERED: HEPARIN SOD (PORCINE) 5000 UNITS/ML VIAL SC SCH ×2 (06:00→09:00)
[2018-07-04] MEDS ORDERED: SODIUM CHLORIDE 0.9% INJ 10 ML SYR IV SCH (06:00)
--- NOTE | 2018-07-04 06:53 | RO ---
DATE OF PROCEDURE: 07/04/2018 PREPROCEDURE DIAGNOSIS: Shock. POSTPROCEDURE DIAGNOSIS: Shock. PROCEDURE: Central line placement. INDICATION: Vasopressor administration and venous access. ATTENDING PHYSICIAN: Dr. Cochran CONSENT: Consent was obtained from the patient prior to the procedure. Indication, risks and benefits were explained at length. PROCEDURE SUMMARY: A central line insertion practices form was completed by an independent observer starting with the first hand wash. A time out was performed. Full sterile technique was maintained throughout the procedure including surgical cap, mask with protective eyewear, full gown and sterile gloves. The patient was placed supine. The right inguinal region was prepped using chlorhexidine and draped in a sterile fashion using a fenestrated drape and a sterile probe cover was employed. Using ultrasound the right femoral vein was identified. Anesthesia was achieved over the vein using 1% lidocaine. Using real time out of plane guidance the introducer needle was inserted into the right femoral vein under direct ultrasound visualization. Venous blood was withdrawn. The syringe was removed and a Guidewire was advanced into the introducer needle. The introducer needle was removed over the guidewire and a small incision was made at the skin surface with a scalpel and a dilator was exchanged over the Guidewire. After appropriate dilation was obtained the dilator was exchanged over the wire for a triple lumen central venous catheter. The wire was removed and the catheter was sutured in place. A sterile chlorhexidine impregnated dressing was placed over the catheter at the insertion site. The patient tolerated the procedure without any hemodynamic compromise. At time of procedure completion, all ports aspirated and flushed probably. Estimated blood loss is minimal.
--- NOTE | 2018-07-04 08:15 | CR ---
DATE OF CONSULTATION: 07/04/2018 HISTORY OF PRESENT ILLNESS: Mr. Worthington is a 53-year-old male with a past medical history of hypertension and alcohol abuse who presented to the emergency department (ED) with the complaint of chest pain. The patient reported that he had been in rehab at [facility] for his alcohol abuse since January and denied having any further alcohol use since then. In the past day or two however, he has started huffing to get high. He reported that he had been huffing earlier in the day when he started to notice the chest pain symptoms. He reports huffing 12 dust off cans a day. The patient also had been having an argument with his daughter at that time as well. The patient denied having any shortness of breath. No headache. No abdominal pain. He did have some episodes of nausea and vomiting earlier in the day. He also reported some episodes of diarrhea a few days ago. He had decreased p.o. intake as well for the past 2 days. The patient denied any fevers or chills at home. He denied any sick contacts. Patient was actually at [facility] when EMS was called. The patient had walked a long distance to the [facility] and when he arrived there he started noticing chest pain around that time. The patient denied having any loss of consciousness at that time, no trauma. On EMS arrival he was given an aspirin 325 mg, nitro sublingual. He was also given Zofran for nausea. His fingerstick glucose at that time was 249. In the ED on arrival the patient was tachycardic and hypotensive. He was reported to be in supraventricular tachycardia (SVT) with a heart rate around 220. The patient was given a synchronized cardioversion. Post cardioversion he continued to be hypotensive. Was given IV fluid hydration with normal saline boluses. Labs showed evidence of hyperkalemia and acute renal failure. He was given IV calcium bicarb, D50 and insulin as well as a dose of Lasix. The patient was then noted around 10:00 p.m. to be unresponsive and in ventricular fibrillation in the ED. Reportedly rhythm strip appeared like Torsades. He was he was given one defibrillation and no medications with return of spontaneous sinus rhythm. He was then given 2 grams of IV magnesium. The patient was also given IV antibiotics with IV vancomycin and Zosyn. The patient continued to be hypotensive after 4-1/2 liters fluid bolus. His systolic blood pressures were in the 80s with a MAP in the 60s. The patient after his episode is awake and alert and responsive appropriately. He is complaining of some chest pain currently and some right-sided pain as well in his shoulder, although he reports a history of chronic right shoulder pain. He does note to be diaphoretic and is complaining of some shortness of breath and difficulty breathing as well. HOME MEDICATIONS: - voltaren gel - lisinopril - omeprazole - hydroxyzine as needed - ibuprofen as needed ALLERGIES: LATEX. PAST MEDICAL HISTORY: Hypertension. History of elevated LFTs in the past. Alcohol abuse. PAST SURGICAL HISTORY: Cholecystectomy. Hernia repair. FAMILY HISTORY: Noncontributory. SOCIAL HISTORY: The patient is a heavy drinker for the past 5 years since his . He would drink a bottle of hard alcohol a day. The patient has been living in a nursing home house after being discharged from rehab at [facility] and reports last alcohol use was in Jan 2018. He has recently started huffing Dust off cans in the past 2 days. The patient is a current smoker. PHYSICAL EXAMINATION VITALS: Temperature T-max was 100.3, pulse 111, respirations 20, blood pressure 86/51, O2 sat 99% on 2 liters nasal cannula. GENERAL: The patient is lying in bed, is awake, alert and responsive, able to follow commands and answer questions appropriately. He does appear to be in some mild distress and is diaphoretic HEENT: Normocephalic, atraumatic. Pupils are reactive to light. There is some beating gaze nystagmus laterally. He has a head tremor noted as well. Dry mucous membranes. NECK: Supple. There is no palpable adenopathy. There is some mild jugular venous distention (JVD). CARDIOVASCULAR: Tachycardic, regular rhythm. Normal S1, S2. Unable to appreciate murmurs. LUNGS: Clear to auscultation bilaterally. ABDOMEN: Soft, obese, mildly distended, nontender. EXTREMITIES: There is no lower extremity edema noted bilaterally. LABORATORY DATA: WBC 18.7, hemoglobin 13.3, platelets 449. Chemistries: On admission sodium was 128, potassium 6.5, chloride 65, bicarb 20, BUN 32, creatinine 4.47, glucose is 209, calcium was less than 5, total bilirubin normal, AST 78, ALT 31, alk phos 109, CPK 3558. Troponin on admission was 0.27. Lipase was 135. TSH and free T4 within normal limits. Most recent chemistry sodium is 137, potassium 3.9, chloride 107, BUN 32, creatinine trending down to 3.32, glucose 127, calcium is 5.3 and magnesium was 1.4. Troponins increasing to 1.75. Urinalysis negative for nitrites, leukocyte esterase and +1 bacteria. ABG pH 7.33, pCO2 28.1, pO2 of 304.3. Micro: GI panel PCR was negative. Blood cultures are pending. IMAGING: CT chest 07/03/2018 showed evidence of mediastinal lymph nodes which were not enlarged on this noncontrast study. There are a few blebs and some mild emphysematous changes noted in the lung mata. There is some mild atelectasis in the bases of the lung bilaterally and some pleural thickening on the left side. No pleural effusion. There appears to be a possible small pericardial effusion. CT abdomen and pelvis report states there is a Talamantes balloon in the urinary bladder, but no evidence of abnormal findings in the liver or spleen and no free fluid or free air in the abdomen. No evidence of colitis. ASSESSMENT/PLAN: The patient is a 53-year-old male with a history of alcohol abuse and hypertension who presented with complaints of chest pain suddenly. The patient reports that he has been abstinent from alcohol since January 2018, although there is some question about his actual soberness since getting out of rehab and staying in a nursing home house. He does note in the past few days that he has been huffing cans and did notice his symptoms of chest pain starting after he had been huffing. On arrival he was noted to be tachycardic and hypotensive. The patient was cardioverted for possible SVT, although may have been just sinus tachycardia. He was found on labs to have hyperkalemia and acute renal failure as well as elevated cardiac enzymes. The patient later went into V-fib and required defibrillation with return of sinus rhythm and blood pressure. At that time there was thought that his rhythm may have appeared like Torsades and he did have hypomagnesemia noted on his labs. The patient continues to have increasing cardiac enzymes and complaint of chest pain and shortness of breath as well as appearing diaphoretic on exam. Given his history of huffing, the patient may have had some acute myocardial toxicity predisposing him to the arrhythmias and perhaps leading to some demand ischemia. He also has a history of alcohol abuse and he may have component of alcohol induced cardiomyopathy as well. The patient did have a low grade temperature of 100.3 and leukocytosis, but this can be seen in the setting of acute huffing toxicity as well. He did not have any other localizing symptoms for infection. He denied any coughing, had no abdominal pain, did have some nausea and vomiting with his initial symptoms and had a history of diarrhea a few days ago, but his GI panel was negative. His chest CT also did not show any focal opacities or infiltrates suggesting pneumonia and his abdomen CT did not show any acute findings suspicious for any infectious etiology in the abdomen. His UA was also negative. His blood cultures are currently pending. 1. NSTEMI- likely 2/2 to huffing inhalation. Hypotension with possible sepsis - Suspect that the patient's leukocytosis and low grade fever are in the setting of his acute huffing toxicity and that the patient's hypotension may be less likely related to sepsis and more related to a possible cardiac etiology or from a possible history of chronic liver disease given his alcohol abuse. - Will check a procalcitonin but continue with broad-spectrum antibiotics for now with vancomycin and Zosyn and followup results of his blood culture. - Patient is status post 4.5 liters of fluid boluses and was started on Lactated Ringer's at 250 mL an hour; however, given his hyperkalemia and patient not responding to fluids, would hold off on further Lactated Ringer's for now and continue to monitor his ins and outs. Will place a Talamantes for accurate urine measurement. - Will place a triple lumen catheter for possible vasopressor administration if needed to keep a MAP above 65. Would start with Levophed for now pending results of his echocardiogram and further cardiac workup. - Continue to trend troponins. Given the increasing troponins and his continued chest pain history would start him with aspirin and Plavix loading and a heparin drip for demand ischemia/non-ST elevation myocardial infarction (NSTEMI). - Would get echo. - continue with nasal cannula oxygen supplementation and monitor his respiratory status. 2. Acute renal failure with elevated CPK, possible rhabdomyolysis Creatinine is currently trending down. His hyperkalemia has also improved. - Would continue to monitor his electrolytes and replete as needed. He has hypocalcemia and hypomagnesemia as well. - Would check a phosphorus level in addition to his other electrolytes. - Would changes fluids from Lactated Ringer's to NS. Would monitor his urine output and adjust his fluid rates accordingly. Will continue to trend his CPK. - The patient did have a Talamantes placed but he removed it, but he is agreeable now to replacement of the Talamantes catheter given his critical state and his acute renal failure. Deep vein thrombosis (DVT) prophylaxis with heparin drip. FULL CODE. Total critical care time spent, not including any procedures, approximately 1 hour and 55 minutes. MTDD
[2018-07-04] MEDS ORDERED: LIDOCAINE VISCOUS 2% SOLN 15ML UDC SSP PRN (08:30)
[2018-07-04 08:43] LABS: INR 1.34; PROTHROMBIN TIME 16.8 SECONDS (12.1-14.4)
[2018-07-04 08:45] LABS: PARTIAL THROMBOPLASTIN TIME 103.6 SECONDS (25.4-37.6)
[2018-07-04] MEDS ORDERED: CLOPIDOGREL 75 MG TAB PO SCH (09:00)
[2018-07-04] MEDS ORDERED: METOPROLOL TART 12.5 MG PER 1/2 TAB PO SCH (09:00)
[2018-07-04] MEDS ORDERED: OMEPRAZOLE 20 MG CAP PO SCH (09:00)
[2018-07-04] MEDS ORDERED: ASPIRIN 81 MG ENTERIC TAB PO SCH (09:00)
[2018-07-04] MEDS ORDERED: LACTOBACILLUS ACIDOPHILUS CAP (BACID) PO SCH (09:00)
[2018-07-04] MEDS ORDERED: NS 1,000 ML IV SCH (09:00)
[2018-07-04] MEDS ORDERED: MORPHINE 4 MG/ML 1ML VIAL/SYRINGE (J2270) IV ONE (10:00)
[2018-07-04 10:21] LABS: MB/CK RELATIVE INDEX 0.54 (< OR =4); TROPONIN I 8.54 NG/ML (< 0.10)
--- NOTE | 2018-07-04 11:26 | ECHO ---
DATE OF PROCEDURE: 07/04/2018 AGE: 53 GENDER: Male. HEIGHT: 68 inches. WEIGHT: 194 pounds. BODY SURFACE AREA: 2.02 meters squared. LOCATION: Inpatient, ICU. REFERRING PHYSICIAN: Dr. Raquel Cochran INDICATION: Cardiac dysrhythmias. Elevated troponin I. Abnormal EKG. MEASUREMENTS 2-D MEASUREMENTS: RV - 5.0 cm LV - 5.5 cm Septum 0.9 cm Posterior wall 0.9 cm Aortic root 3.2 cm LA - 3.4 cm LVEF 60% DOPPLER MEASUREMENTS: AV - 1.2 m/s LVOT - 0.90 m/s LVOT diameter 2.1 cm MV-E 74, A 88, E/A ratio 0.8 Early mitral deceleration time 204 ms E prime 7, A prime 14, E/E prime ratio 10.4 PCWP 14 mmHg PV - 0.8 m/s Pulmonary artery acceleration time 100 ms PASP 34 mmHg IVC - 2.2 cm COMMENTS: Normal sinus rhythm without intraventricular conduction disturbance. M-mode and two-dimensional echocardiography was performed with pulsed, continuous wave, color flow and tissue Doppler studies. Normal left ventricular size and wall thickness with mild anteroseptal hypokinesis suspected to be due to right ventricular pressure overload, although a localized injury could not be ruled out. Preserved global resting left ventricular systolic function. Normal left atrial size. Subtle Doppler signs of a degree of impaired LV diastolic function, but currently normal estimated mean left atrial pressure. Moderately dilated right heart chambers with a degree of right ventricular free wall hypokinesis and Doppler evidence of at least mild pulmonary hypertension. Slightly dilated IVC with currently adequate respiratory collapse against a significantly elevated central venous pressure. Normal appearing valvular structures and function. Normal aortic root size. No apparent intracardiac mass or pericardial effusion. A preliminary report of this study was relayed directly to Dr. Cochran at 11:00 a.m. on July 04, 2018.
--- NOTE | 2018-07-04 17:27 | DS.PDOC ---
Discharge Summary General Date of Admission July 03, 2018 at 19:43 Date of Discharge 07/04/18 Discharge Summary PROCEDURES PERFORMED DURING STAY: [None]. ADMITTING DIAGNOSES: Inhalant abuse, risk for sudden sniffing syndrome Unstable angina, non-STEMI Septic shock, hypotension Cardiac arrhythmia, acute myocardial toxicity Acute renal failure Hyperkalemia Rhabdomyolysis Diarrhea history of alcohol abuse DISCHARGE DIAGNOSES: Inhalant abuse, risk for sudden sniffing syndrome Unstable angina, non-STEMI Septic shock, hypotension Cardiac arrhythmia, acute myocardial toxicity Acute renal failure Hyperkalemia Rhabdomyolysis Diarrhea history of alcohol abuse COMPLICATIONS/CHIEF COMPLAINT: Arf D/T Rhabdomyolysis. HISTORY OF PRESENT ILLNESS: [Mr. Worthington is a 53 years old man with hx/o HTN and alcohol abuse. As per pt, he has been to rehab and has stayed clean since January. He was brought to ER for evaluation of chest pain. He was not able to describe his problems in details due to severe sick feeling, but did mention that chest pain resolved after treatment in the ER. He denies SOB, headache, photophobia, neck pain, or abdominal pain. In the ER several critical findings were noted and several events occurred. He was noted to be in SVT with HR of 220/min with hypotension on arrival. Shock was delivered. But later, review of rhythm showed sinus rhythm with tall T wave (the same size of R wave) which made it look like a SVT, while actual HR was at 110/min. Pt was noted to have acute renal failure with Serum Cr of 4.47, K 6.5, CK 3558, Ca <5. Pt was given IV hydration, with bolus, along with IV Calcium, Bicarb, D50 and insulin. He also received a dose of Lasix, and output out 750 cc of urine. Pt spoked fever of 100.[address] of chest/abd/pelv was unremarkable, as well a skin/soft tissue, neuro and other exams. Due to persistent hypotension and leucocytosis (WBC 18.7K), pt was empirically started on IV Vanco and Zosyn; blood cultures were sent. After 4L of fluid bolus, pt was started on Levophed. Ocean Export Agent was consulted. I spoke with Dr. Cochran. Around 10pm, pt went into V-tach in the ER. Rhythm strip looked like Torsades. Pt was shocked, and given 2 gram of IV Mag. A stat serum Mg level was 1.4. I consulted with Dr. Healy; he recommended treating underlying sepsis which was the cause of arrhythmia. Troponin 0.27, 0.99. EKG: sinus rhythm with tall T waves, not significant ST changes. Repeat Trop 1.7. GI panel was snet due to loose stool. It is negative.]. HOSPITAL COURSE: [53-year-old male with a history of alcohol abuse and hypertension who presented with complaints of chest pain suddenly. The patient reports that he has been abstinent from alcohol since January 2018, although there is some question about his actual soberness since getting out of rehab and staying in a longterm house. He does note in the past few days that he has been huffing cans and did notice his symptoms of chest pain starting after he had been huffing. On arrival he was noted to be tachycardic and hypotensive. The patient was cardioverted for possible SVT, although may have been just sinus tachycardia. He was found on labs to have hyperkalemia and acute renal failure as well as elevated cardiac enzymes. The patient later went into V-fib and required defibrillation with return of sinus rhythm and blood pressure. At that time there was thought that his rhythm may have appeared like Torsades and he did have hypomagnesemia noted on his labs. The patient continues to have increasing cardiac enzymes and complaint of chest pain and shortness of breath as well as appearing diaphoretic on exam. Given his history of huffing, the patient may have had some acute myocardial toxicity predisposing him to the arrhythmias and perhaps leading to some demand ischemia. He also has a history of alcohol abuse and he may have component of alcohol induced cardiomyopathy as well. The patient did have a low grade temperature of 100.3 and leukocytosis, but this can be seen in the setting of acute huffing toxicity as well. He did not have any other localizing symptoms for infection. He denied any coughing, had no abdominal pain, did have some nausea and vomiting with his initial symptoms and had a history of diarrhea a few days ago, but his GI panel was negative. His chest CT as per arts manager also did not show any focal opacities or infiltrates suggesting pneumonia and his abdomen CT did not show any acute findings suspicious for any infectious etiology in the abdomen. Radiologist states Multiple non-enlarged mediastinal lymph nodes without priors for comparison and without intravenous contrast for better evaluation of the pulmonary jossue. His UA was also negative. His blood cultures are currently pending. CT abdomen showed no acute intra-abdominal or interim pelvic disease process is noted. Patient was treated for multiple problems mentioned below and stabilized in the ICU with the assistance of the returns supervisor. Patient also had central line in place with the help of the returns supervisor overnight. Patient's cardiac enzyme trended upwards and Overnight team contacted cardiology regarding abnormal cardiac enzymes and the patient's condition. Database Design Analyst to follow patient in the morning. In the morning patient continues to have chest discomfort. His cardiac enzyme continued to elevate with optimal medical management as initiated by the primary team overnight. I personally spoke to cardiology this morning who recommended patient be transferred out to a tertiary center for higher level of care. Patient was assessed by the ICU team and cardiology team at [place]. Spoke to Dr. Fragoso who graciously accepted the patient under his care to the ICU and Dr. Quintanilla (nephrologist) who agreed to assist in his care at the tertiary center. Patient to be transferred today via helicopter as recommended by our returns supervisor team. Inhalant abuse, risk for sudden sniffing syndrome Septic Shock of Unknown Etiology r/o infection with Circulatory and Acute Renal Failure, Rhabdomyolysis, Torsades V-tach/Cardiac arrhythmia/acute myocardial toxicity, hyperkalemia - Admit to ICU; Ocean Export Agent and Cardiology consults - IV Fluid, Vasopressor to keep MAP>65 - Empiric Antibiotics, IV Vanco and Zosyn, renally dosed - f/u c/s - Monitor multi-organ function; I/O - Monitor electrolytes NSTEMI - Cardiology consult - IV Heparin, ASA, Plavix, Statin - Echo:Normal sinus rhythm without intraventricular conduction disturbance. Normal left ventricular size and wall thickness with mild anteroseptal hypokinesis suspected to be due to right ventricular pressure overload, although a localized injury could not be ruled out. Preserved global resting left ventricular systolic function. Normal left atrial size. Subtle Doppler signs o f a degree of impaired LV diastolic function, but currently normal estimated mean left atrial pressure. Moderately dilated right heart chambers with a degree of right ventricular free wall hypokinesis and Doppler evidence of at least mild pulmonary hypertension. Slightly dilated IVC with currently adequate respiratory collapse against a significantly elevated central venous pressure. Normal appearing valvular structures and function. Normal aortic root size. No apparent intracardiac mass or pericardial effusion. Diarrhea-GI panel negative history of alcohol abuse DISCHARGE MEDICATIONS: Please see below. ALLERGIES: Please see below. PHYSICAL EXAMINATION ON DISCHARGE: VITAL SIGNS: Please see below GENERAL APPEARANCE: Mild distress HEENT: Normocephalic, PERRLA, Mucous moist, CARDIOVASCULAR: S1,S2, pulse present, regularly, regular LUNGS: Equal air entry b/l, no wheezes or crackle ABDOMEN: Soft, BS present, no tenderness, no guarding EXTREMITIES: B/L no edema, capillary refill present SKIN: Warm, No fever NEUROLOGICAL: Cranial nerves grossly intact PSYCHIATRIC: Normal mood and affect for current situation LABORATORY DATA: Please see below. IMAGING: [ CXR:There is no acute cardiopulmonary disease. CT chest:Multiple non-enlarged mediastinal lymph nodes without priors for co mparison and without intravenous contrast for better evaluation of the pulmonary jossue. Followup is suggested. CT abdomen:No acute intraabdominal or intrapelvic disease process is noted on this limited exam. There does not appear to be a significant change compared to the prior exam. PROGNOSIS: [Guarded] ACTIVITY: [As tolerated]. DIET: [As per tertiary center] DISPOSITION: Transfer to tertiary center DISCHARGE CONDITION: Guarded TIME SPENT ON DISCHARGE: Greater than [50] minutes. Vital Signs/I&Os Vital Signs Date Time Temp Pulse Resp B/P (MAP) Pulse Ox O2 Delivery O2 Flow Rate FiO2 07/04/18 10:38 99.6 89 16 113/73 (86) 96 2.0 07/03/18 23:10 Nasal Cannula I&O- Last 24 Hours up to 6 AM 07/04/18 06:00 Intake Total 3480 ml Output Total 2250 ml Balance 1230 ml Laboratory Data Labs 24H Laboratory Tests 2 07/03/18 16:59: Immature Granulocyte % (Auto) 0.8, White Blood Count 18.7H, Red Blood Count 4.61, Hemoglobin 13.3L, Hematocrit 39.3L, Mean Corpuscular Volume 85.2, Mean Corpuscular Hemoglobin 28.9, Mean Corpuscular Hemoglobin Concent 33.8, Red Cell Distribution Width 13.1, Platelet Count 449, Neutrophils (%) (Auto) 90.0H, Lymphocytes (%) (Auto) 6.4L, Monocytes (%) (Auto) 2.5, Eosinophils (%) (Auto) 0.0, Basophils (%) (Auto) 0.3, Neutrophils # (Auto) 16.8H, Lymphocytes # (Auto) 1.2L, Monocytes # (Auto) 0.5, Eosinophils # (Auto) 0.0, Basophils # (Auto) 0.1, Nucleated Red Blood Cells % (auto) 0.0, Anion Gap 12, Glomerular Filtration Rate 14.8L, Calcium Level < 5.0*L, Aspartate Amino Transf (AST/SGOT) 78H, Alanine Aminotransferase (ALT/SGPT) 31, Alkaline Phosphatase 109, Total Bilirubin 0.3, Direct Bilirubin 0.1, Total Creatine Kinase 3558H, Creatine Kinase MB 25.0H, Creatine Kinase MB Relative Index 0.71, Troponin I 0.27H, Total Protein 7.3, Albumin 4.4, Albumin/Globulin Ratio 1.52, Lipase 135, Ethyl Alcohol Level < 0.00 3 07/03/18 17:15: POC Glucose (Misc Panel) 200H, POC Sodium (Misc Panel) 131L, POC Potassium (Misc Panel) 6.5*H, POC Chloride (Misc Panel) 97L, POC Total CO2 (Misc Panel) 18.0L, POC Blood Urea Nitrogen (Misc Panel 30H, POC Ionized Calcium (Misc Panel) 1.8*L, POC Creatinine (Misc Panel) 4.5H, POC Hematocrit (Misc Panel) 36.0L 07/03/18 17:19: Urine Color YELLOW, Urine Appearance CLOUDYH, Urine pH 5.0, Urine Specific [place] 1.010, Urine Protein 1+H, Urine Glucose (UA) NEGATIVE, Urine Ketones NEGATIVE, Urine Blood 1+H, Urine Nitrite NEGATIVE, Urine Bilirubin NEGATIVE, Urine Urobilinogen 0.2, Urine Leukocyte Esterase NEGATIVE, Urine WBC (Auto) 3, Urine RBC (Auto) 9H, Urine Hyaline Casts (Auto) 4, Urine Bacteria (Auto) 1+H, Urine Squamous Epithelial Cells 0, Urine Transitional Epithelial Cells 5, Urine Mucus (Auto) SMALL, Urine Sperm (Auto) , Urine Random Sodium 19, Urine Amphetamines Screen NEGATIVE, Urine Benzodiazepines Screen NEGATIVE, Urine Opiat es Screen NEGATIVE, Urine Methadone Screen NEGATIVE, Urine Barbiturates Screen NEGATIVE, Urine Phencyclidine Screen NEGATIVE, Urine Cocaine Metabolite Screen NEGATIVE, Urine Cannabinoids Screen NEGATIVE 07/03/18 20:26: Anion Gap 10, Glomerular Filtration Rate 16.9L, Calcium Level 5.5*L, Troponin I 0.99#H, Blood Urea Nitrogen 33H, Creatinine 3.99H, Sodium Level 132L, Potassium Level 4.2#, Chloride Level 102, Carbon Dioxide Level 20L, Magnesium Level 1.4L, Thyroid Stimulating Hormone (TSH) 1.620, Free Thyroxine Index 3.0, Thyroxine (T4) 8.3, Triiodothyronine (T3) Uptake 36 07/03/18 22:35: Blood Gas Bicarbonate Standard 16.5L, Arterial Blood pH 7.333L, Arterial Blood Partial Pressure CO2 28.1L, Arterial Blood Partial Pressure O2 304.3H, Arterial Blood Total CO2 15.4L, Arterial Blood HCO3 14.6L, Arterial Blood Base Excess - 10.0L, Arterial Blood Oxygen Saturation 99.8H 07/03/18 22:46: Anion Gap 14, Glomerular Filtration Rate 20.8L, Blood Urea Nitrogen 32H, Creatinine 3.32H, Sodium Level 137, Potassium Level 3.9, Chloride Level 107, Carbon Dioxide Level 16L, Calcium Level 5.3*L, Troponin I 1.75#*H 07/04/18 00:53: Prothrombin Time 16.2H, Prothromb Time International Ratio 1.28, Activated Partial Thromboplast Time 42.7H, Lactic Acid Level 1.3, Magnesium Level 2.4, Total Creatine Kinase 5580H 07/04/18 04:39: Anion Gap 10, Glomerular Filtration Rate 28.6L, Blood Urea Nitrogen 27H, Creati nine 2.52H, Sodium Level 135L, Potassium Level 4.2, Chloride Level 105, Carbon Dioxide Level 20L, Calcium Level 6.5#L, Troponin I 5.94#*H, Magnesium Level 2.9H, Total Creatine Kinase 5917H, Nucleated Red Blood Cells % (auto) 0.0, Phosphorus Level 4.3, Aspartate Amino Transf (AST/SGOT) 164H, Alanine Aminotransferase (ALT/SGPT) 42, Alkaline Phosphatase 83, Total Bilirubin 0.2, Direct Bilirubin 0.1, Total Protein 6.3L, Albumin 2.8#L, Creatine Kinase MB 38.0H, Creatine Kinase MB Relative Index 0.64, Albumin/Globulin Ratio 0.80L 07/04/18 08:00: Prothrombin Time 16.8H, Prothromb Time International Ratio 1.34, Activated Partial Thromboplast Time 103.6H 07/04/18 09:20: Total Creatine Kinase 7084H, Creatine Kinase MB 39.0H, Creatine Kinase MB Relative Index 0.54, Troponin I 8.54#*H CBC/BMP Laboratory Tests 07/03/18 16:59 Red Blood Count 4.61, Mean Corpuscular Volume 85.2, Mean Corpuscular Hemoglobin 28.9, Mean Corpuscular Hemoglobin Concent 33.8, Red Cell Distribution Width 13.1, Neutrophils (%) (Auto) 90.0 H, Lymphocytes (%) (Auto) 6.4 L, Monocytes (%) (Auto) 2.5, Eosinophils (%) (Auto) 0.0, Basophils (%) (Auto) 0.3, Neutrophils # (Auto) 16.8 H, Lymphocytes # (Auto) 1.2 L, Monocytes # (Auto) 0.5, Eosinophils # (Auto) 0.0, Basophils # (Auto) 0.1 07/03/18 20:26 Calcium Level 5.5 *L 07/03/18 22:46 Calcium Level 5.3 *L 07/04/18 04:39 Red Blood Count 3.66 L, Mean Corpuscular Volume 87.2, Mean Corpuscular Hemoglobin 29.0, Mean Corpuscular Hemoglobin Concent 33.2, Red Cell Distribution Width 13.2, Calcium Level 6.5 #L, Phosphorus Level 4.3, Aspartate Amino Transf (AST/SGOT) 164 H, Alanine Aminotransferase (ALT/SGPT) 42, Total Creatine Kinase 5917 H, Alkaline Phosphatase 83, Total Bilirubin 0.2, Direct Bilirubin 0.1, Total Protein 6.3 L, Albumin 2.8 #L Microbiology Microbiology 07/03/18 Blood Culture, Received Pending 07/03/18 Blood Culture, Received Pending 07/03/18 Gastrointestinal Tract Panel (PCR) - Final, Complete 07/04/18 MRSA Screen, Received Pending Discharge Medications Scheduled Diclofenac Sodium (Voltaren) 100 Gm Gel..gram., 1 APLCT TOP DAILY, (Reported) APPLIES TO SHOULDER Lisinopril (Lisinopril) 20 Mg Tab, 20 MG PO DAILY, (Reported) Omeprazole (Omeprazole) 20 Mg Cap, 20 MG PO Q2D, (Reported) Scheduled PRN Acetaminophen (Acetaminophen) 500 Mg Tablet, 1,000 MG PO Q6H PRN for PAIN, (Reported) Hydroxyzine HCl (Hydroxyzine HCl) 25 Mg Tab, 25 MG PO Q6H PRN for ANXIETY/AGITATION, (Reported) Ibuprofen (Ibuprofen) 600 Mg Tablet, 600 MG PO TID PRN for PAIN, (Reported) Allergies Coded Allergies: latex (Verified Allergy, Unknown, 07/03/18) JEANINE KRISHNAN MD July 04, 2018 12:09
[2018-07-04] MEDS ORDERED: ATORVASTATIN 20 MG TAB PO SCH (21:00)
--- NOTE | 2018-07-05 07:08 | ECGEPIP ---
Stationary ECG Study [facility] - ED Test Date: 2018-07-03 Pat Name: TIM MILAN Department: Room: [place] [address] Gender: M Biometrics Head: ct : 1965 Requested By: GIOVANNA Peguero Order Number: [id number] Reading MD: Jourdan Soriano Measurements Intervals [place] Rate: 118 P: [place]: 0 QRS: 29 QRSD: 86 T: 25 QT: 308 QTc: 432 Interpretive Statements SINUS TACHYCARDIA HYPERACUTE T WAVES, OCONSIDER HYPERKALEMIA SIMILAR TO PRIOR ON SAME DATE Electronically Signed On 07-05-2018 7:08:13 EDT by Jourdan Soriano
== END 2018-07-04 10:58 | disposition short-term general hospital (02) | DRG 816 ==
LOC: EDBD 16:50 → M ED 16:50 → M ED INP 19:43 → M ICU 23:25
PROVIDERS: ADMIT Internal Medicine; ATTEND Internal Medicine
PROC: 06HM33Z Insertion of Infusion Device into Right Femoral Vein, Percutaneous Approach (ICD-10-PCS; principal; 2018-07-04)
DX: T59.91XA Toxic effect of unspecified gases, fumes and vapors, accidental (unintentional), initial encounter (principal); R65.21 Severe sepsis with septic shock; I21.4 Non-ST elevation (NSTEMI) myocardial infarction; I47.2 Ventricular tachycardia; A41.9 Sepsis, unspecified organism; I42.6 Alcoholic cardiomyopathy; E83.51 Hypocalcemia; N17.9 Acute kidney failure, unspecified; M62.82 Rhabdomyolysis; E87.5 Hyperkalemia; I45.81 Long QT syndrome; Z79.899 Other long term (current) drug therapy; Z91.040 Latex allergy status; F17.200 Nicotine dependence, unspecified, uncomplicated; F10.188 Alcohol abuse with other alcohol-induced disorder; R19.7 Diarrhea, unspecified; Y92.9 Unspecified place or not applicable

== ENCOUNTER 2018-08-29 07:24 | Emergency (ER) | payer MEDICAID, OTHER ==
[~2018-08-29] VITALS: Ht 172.7 cm; Wt 82.4 kg
[~2018-08-29 07:24] MED LIST changes: +ACET-683 PO; +IBUP-1022 PO; -OMEP20CA3 PO; +OMEP20CA4 PO; +VOLT1GEL15 TOP
[2018-08-29] MEDS ORDERED: BAYE325T12 PO (08:08)
[2018-08-29] MEDS ORDERED: LOPR1TAB6 PO (08:08)
--- NOTE | 2018-08-29 08:11 | REP ---
Clinical: Chest pain . Comparison: 07/03/2018 . Findings: The mediastinum and cardiac silhouette are stable and within normal limits for portable technique. Evidence for recent sternotomy. The lung mata are clear without acute consolidation, effusion, or pneumothorax. Skeletal structures are intact. Impression: No acute cardiopulmonary process appreciated. Electronically Signed by Kirill Leslie MD 08/29/2018 08:02 A
[2018-08-29] MEDS ORDERED: ASPIRIN 325 MG TAB PO ONE (08:15)
[2018-08-29] MEDS ORDERED: METOPROLOL TART 25 MG TABLET PO ONE (08:15)
[2018-08-29] MEDS ORDERED: LISINOPRIL 5 MG TAB PO ONE (08:15)
[2018-08-29 08:16] VITALS: BP 157/76
[2018-08-29 08:22] LABS: BASO # 0.1 10^3/uL (0.0-0.2); BASO % 1.2 % (0.0-1.0); EOS # 0.2 10^3/uL (0.0-0.50); EOS % 1.7 % (0.0-3.0); HEMATOCRIT 40.6 % (42.0-52.0); HEMOGLOBIN 13.7 g/dl (13.5-17.5); LYMPH % 22.6 % (24.0-44.0); MEAN CORPUSCULAR HEMOGLOBIN 28.2 pg (27.0-33.0); MEAN CORPUSCULAR HGB CONC 33.7 g/dl (32.0-36.5); MEAN CORPUSCULAR VOLUME 83.5 fl (80.0-96.0); MONO # 0.6 10^3/uL (0.0-0.8); MONO % 6.7 % (0.0-5.0); NEUTROPHILS # 5.8 10^3/uL (1.8-7.7); NEUTROPHILS % 67.5 % (36.0-66.0); PLATELET COUNT, AUTOMATED 363 10^3/uL (150-450); RED BLOOD COUNT 4.86 10^6/uL (4.30-6.10); WHITE BLOOD COUNT 8.6 10^3/uL (4.0-10.0)
[2018-08-29 08:44] LABS: BLOOD UREA NITROGEN 16 MG/DL (7-18); CALCIUM LEVEL 9.3 MG/DL (8.5-10.1); CARBON DIOXIDE LEVEL 22 MEQ/L (21-32); CHLORIDE LEVEL 101 MEQ/L (98-107); CK-MB VALUE MASS 2.1 NG/ML (<3.6); CPK CREATINE PHOSPHOKINASE 190 U/L (39-308); CREATININE FOR GFR 0.79 MG/DL (0.70-1.30); GLOMERULAR FILTRATION RATE > 60.0 (>56); GLUCOSE, FASTING 91 MG/DL (70-100); MAGNESIUM LEVEL 1.9 MG/DL (1.8-2.4); MB/CK RELATIVE INDEX 1.11 (< OR =4); POTASSIUM SERUM 4.3 MEQ/L (3.5-5.1); SODIUM LEVEL 137 MEQ/L (136-145); TROPONIN I 0.08 NG/ML (< 0.10)
[2018-08-29] MEDS ORDERED: hydrOXYzine 25 MG TAB PO STA (09:32)
[2018-08-29 10:15] LABS: CK-MB VALUE MASS 2.1 NG/ML (<3.6); MB/CK RELATIVE INDEX 1.24 (< OR =4); TROPONIN I 0.08 NG/ML (< 0.10)
--- NOTE | 2018-08-29 10:35 | ECGEPIP ---
[facility] - ED Test Date: 2018-08-29 Pat Name: TIM MILAN Department: Room: - Gender: Male Burn Center Nurse: : 1965 Requested By: Dari Castro Order Number: [id number] Reading MD: Dari Castro Measurements Intervals [place] Rate: 100 P: 59 [place]: 159 QRS: 19 QRSD: 74 T: 58 QT: 342 QTc: 443 Interpretive Statements SINUS TACHYCARDIA LEFT ATRIAL ENLARGEMENT SEPTAL MYOCARDIAL INFARCTION, OF INDETERMINATE AGE, CLINICAL CORRELATION PRIOR HYPERACUTE T WAVES IN SAME DISTRIBUTION Electronically Signed on 08-29-2018 10:35:20 EDT by Dari Castro
[2018-08-29] MEDS ORDERED: METO37.5 PO (13:34)
[2018-08-29] MEDS ORDERED: LISI-542 PO (13:35)
[2018-08-29] MEDS ORDERED: ASPI-525 PO (13:35)
[2018-08-29 14:03] LABS: MB/CK RELATIVE INDEX 1.3 (< OR =4); TROPONIN I 0.07 NG/ML (< 0.10)
[2018-08-29] MEDS ORDERED: VIST25CA PO (14:12)
[2018-08-29 14:19] VITALS: BP 136/65
--- NOTE | 2018-08-29 15:54 | ECGEPIP ---
[facility] - ED Test Date: 2018-08-29 Pat Name: TIM MILAN Department: Room: - Gender: Male Military Pay Clerk: JKenneth : 1965 Requested By: Dari Castro Order Number: [id number] Reading MD: Dari Castro Measurements Intervals [place] Rate: 63 P: 39 ID: [id number] QRS: 12 QRSD: 91 T: 29 QT: 409 QTc: 420 Interpretive Statements SINUS RHYTHM SEPTAL MYOCARDIAL INFARCTION, OF INDETERMINATE AGE DECREASED RATE 08/29/18 7:39 Electronically Signed on 08-29-2018 15:54:47 EDT by Dari Castro
--- NOTE | 2018-08-29 15:55 | ECGEPIP ---
[facility] - ED Test Date: 2018-08-29 Pat Name: TIM MILAN Department: Room: - Gender: Male Maintenance Engineer: [email or web address] : 1965 Requested By: Dari Castro Order Number: [id number] Reading MD: Dari Castro Measurements Intervals [place] Rate: 86 P: 31 [place]: 148 QRS: 19 QRSD: 78 T: 48 QT: 372 QTc: 445 Interpretive Statements SINUS RHYTHM POSSIBLE LEFT ATRIAL ENLARGEMENT SEPTAL MYOCARDIAL INFARCTION, OF INDETERMINATE AGE INCREASED RATE 9:27 Electronically Signed on 08-29-2018 15:55:24 EDT by Dari Castro
== END 2018-08-29 14:21 | disposition home or self-care (01) ==
LOC: M ED 07:24
DX: R07.9 Chest pain, unspecified (principal); R00.0 Tachycardia, unspecified; I51.7 Cardiomegaly; I50.9 Heart failure, unspecified; I10 Essential (primary) hypertension; E78.5 Hyperlipidemia, unspecified; Z98.61 Coronary angioplasty status; Z72.0 Tobacco use; Z82.49 Family history of ischemic heart disease and other diseases of the circulatory system; Z79.82 Long term (current) use of aspirin; Z79.899 Other long term (current) drug therapy; Z91.040 Latex allergy status

== ENCOUNTER 2020-09-25 09:09 | Emergency (ER) | payer MEDICAID, OTHER ==
[~2020-09-25] VITALS: Ht 172.7 cm; Wt 77.2 kg
[2020-09-25 09:09] VITALS: BP 147/80
[~2020-09-25 09:09] MED LIST changes: +ASPI325T48 PO; +BAYE325T12 PO; -LISI-538 PO; +LISI20TA33 PO; +LISI5TAB11 PO; +LOPR1TAB6 PO; +METO37.5 PO; +OMEP1CAP73 PO; -OMEP20CA4 PO; +VIST25CA PO
[2020-09-25] MEDS ORDERED: ATOR1TAB21 PO ×2 (09:19→10:43)
[2020-09-25] MEDS ORDERED: EFFE150C2 PO (09:19)
[2020-09-25] MEDS ORDERED: PSEU1TAB3 PO (10:39)
[2020-09-25] MEDS ORDERED: FLON1SPR NARES (10:39)
[2020-09-25] MEDS ORDERED: PRED20TA PO (10:43)
[2020-09-25] MEDS ORDERED: VENL150T24 PO (10:43)
[2020-09-25] MEDS ORDERED: ELIM5CRE2 TOP (10:43)
[2020-09-25] MEDS ORDERED: HYDR-3363 PO (10:43)
[2020-09-25] MEDS ORDERED: LISI5TAB11 PO (10:43)
== END 2020-09-25 10:51 | disposition home or self-care (01) ==
LOC: M ED 09:09
DX: B86 Scabies (principal); I10 Essential (primary) hypertension; E78.5 Hyperlipidemia, unspecified; G47.33 Obstructive sleep apnea (adult) (pediatric); K21.9 Gastro-esophageal reflux disease without esophagitis; Z79.899 Other long term (current) drug therapy; Z79.82 Long term (current) use of aspirin; Z91.040 Latex allergy status; F17.210 Nicotine dependence, cigarettes, uncomplicated

== ENCOUNTER → 2021-10-20 | Outpatient (CLI) | payer OTHER ==
[~2021-10-20] MED LIST changes: +ATOR1TAB21 PO; +EFFE150C2 PO; +ELIM5CRE2 TOP; +FLON1SPR NARES; +PRED20TA PO; +PSEU1TAB3 PO; +VENL150T24 PO
== END ==
LOC: M RAD 12:24
PROVIDERS: ATTEND Family Medicine
DX: F17.210 Nicotine dependence, cigarettes, uncomplicated (principal); J43.9 Emphysema, unspecified; I70.0 Atherosclerosis of aorta; I25.10 Atherosclerotic heart disease of native coronary artery without angina pectoris; Z95.1 Presence of aortocoronary bypass graft; M51.44 Schmorl's nodes, thoracic region

== ENCOUNTER 2022-03-23 10:17 | Emergency (ER) | payer OTHER ==
[~2022-03-23] VITALS: Ht 172.7 cm; Wt 81.7 kg
[~2022-03-23 10:17] MED LIST changes: -DOXY-443 PO; -NYST-38 SSP
[2022-03-23] MEDS ORDERED: DOXY-443 PO (12:12)
[2022-03-23] MEDS ORDERED: NYST-38 SSP (12:12)
[2022-03-23 12:24] VITALS: BP 139/74
== END 2022-03-23 12:32 | disposition home or self-care (01) ==
LOC: M ED 10:17
DX: B37.9 Candidiasis, unspecified (principal); L03.211 Cellulitis of face; K21.9 Gastro-esophageal reflux disease without esophagitis; I10 Essential (primary) hypertension; Z95.1 Presence of aortocoronary bypass graft; Z79.82 Long term (current) use of aspirin; Z79.899 Other long term (current) drug therapy; Z91.040 Latex allergy status

== ENCOUNTER → 2022-03-23 | Outpatient (CLI) | payer OTHER ==
[~2022-03-23] MED LIST changes: +DOXY-443 PO; +NYST-38 SSP
[2022-03-23 10:46] LABS: HEMATOCRIT 43.3 % (42.0-52.0); HEMOGLOBIN 14.5 g/dl (13.5-17.5); MEAN CORPUSCULAR HEMOGLOBIN 29.6 pg (27.0-33.0); MEAN CORPUSCULAR HGB CONC 33.5 g/dl (32.0-36.5); MEAN CORPUSCULAR VOLUME 88.4 fl (80.0-96.0); PLATELET COUNT, AUTOMATED 358 10^3/uL (150-450); WHITE BLOOD COUNT 9.6 10^3/uL (4.0-10.0)
[2022-03-23 11:29] LABS: HEMOGLOBIN A1c 5.1 % (4.0-6.0)
[2022-03-23 12:22] LABS: MAGNESIUM LEVEL 1.8 MG/DL (1.8-2.4)
[2022-03-23 12:24] LABS: ALBUMIN 4.2 G/DL (3.2-5.2); ALKALINE PHOSPHATASE 86 U/L (46-116); ALT/SGPT 24 U/L (7.0-40); AST/SGOT 20 U/L (<34); BILIRUBIN,TOTAL 0.4 MG/DL (0.3-1.2); BLOOD UREA NITROGEN 9 MG/DL (9-23); CALCIUM LEVEL 9.4 MG/DL (8.5-10.1); CARBON DIOXIDE LEVEL 27 MMOL/L (20-31); CHLORIDE LEVEL 105 MMOL/L (98-107); CHOLESTEROL LEVEL 153 MG/DL (<200); CHOLESTEROL RISK RATIO 4.81 (<5); CREATININE FOR GFR 0.91 MG/DL (0.70-1.30); GLOMERULAR FILTRATION RATE > 60.0 (>56); GLUCOSE, FASTING 104 MG/DL (60-100); HDL CHOLESTEROL 31.8 MG/DL (>40); IRON (FE) 84 UG/DL (65-175); LDL CHOLESTEROL 104.4 MG/DL (<100); NON-HDL-C 121 MG/DL; POTASSIUM SERUM 4.1 MMOL/L (3.5-5.1); SODIUM LEVEL 138 MMOL/L (136-145); TOTAL PROTEIN 7.4 G/DL (5.7-8.2); TRIGLYCERIDES LEVEL 84 MG/DL (<150)
[2022-03-23 12:25] LABS: VITAMIN B12 LEVEL 478 PG/ML (211-911)
== END ==
LOC: M RAD 09:49
PROVIDERS: ATTEND Internal Medicine Cardiovascular Disease
DX: D64.9 Anemia, unspecified (principal)

== ENCOUNTER 2022-09-13 10:02 | Observation (INO) | payer OTHER ==
[~2022-09-13] VITALS: Ht 172.7 cm; Wt 76.9 kg
[~2022-09-13 10:02] MED LIST changes: +DOXY-443 PO; +NYST-38 SSP
[2022-09-13] MEDS ORDERED: CLOP75TA99 PO (10:15)
[2022-09-13] MEDS ORDERED: FURO20TA2 PO (10:20)
[2022-09-13] MEDS ORDERED: D3 +TAB PO (10:20)
[2022-09-13] MEDS ORDERED: BACL5TAB2 PO (10:20)
[2022-09-13 11:49] LABS: BASO # 0.1 10^3/uL (0.0-0.2); BASO % 1.2 % (0.0-1.0); EOS # 0.1 10^3/uL (0.0-0.5); EOS % 0.8 % (0.0-3.0); HEMATOCRIT 40.4 % (42.0-52.0); HEMOGLOBIN 14.4 g/dl (13.5-17.5); LYMPH # 1.9 10^3/uL (1.5-5.0); LYMPH % 24.9 % (24.0-44.0); MEAN CORPUSCULAR HEMOGLOBIN 29.6 pg (27.0-33.0); MEAN CORPUSCULAR HGB CONC 35.6 g/dl (32.0-36.5); MEAN CORPUSCULAR VOLUME 83.1 fl (80.0-96.0); MONO # 0.9 10^3/uL (0.0-0.8); MONO % 11.4 % (2.0-8.0); NEUTROPHILS # 4.6 10^3/uL (1.5-8.5); NEUTROPHILS % 61.3 % (36.0-66.0); PLATELET COUNT, AUTOMATED 285 10^3/uL (150-450); RED BLOOD COUNT 4.86 10^6/uL (4.30-6.10); WHITE BLOOD COUNT 7.5 10^3/uL (4.0-10.0)
[2022-09-13 12:15] LABS: THYROID STIMULATING HORMONE 2.295 uIU/ML (0.55-4.78)
[2022-09-13 12:23] LABS: ETHYL ALCOHOL (ETHANOL) < 0.003 % (0.000-0.010)
[2022-09-13 12:25] LABS: ALBUMIN 4.6 G/DL (3.2-5.2); ALKALINE PHOSPHATASE 157 U/L (46-116); ALT/SGPT 141 U/L (7.0-40); AST/SGOT 112 U/L (<34); BILIRUBIN,DIRECT 0.5 MG/DL (<0.4); BILIRUBIN,TOTAL 1.4 MG/DL (0.3-1.2); BLOOD UREA NITROGEN 23 MG/DL (9-23); CALCIUM LEVEL 9.5 MG/DL (8.5-10.1); CARBON DIOXIDE LEVEL 27 MMOL/L (20-31); CHLORIDE LEVEL 90 MMOL/L (98-107); CK-MB VALUE MASS 1.4 NG/ML (<3.6); CPK CREATINE PHOSPHOKINASE 190 U/L (46-171); CREATININE FOR GFR 1.53 MG/DL (0.70-1.30); GLOMERULAR FILTRATION RATE 50.2 (>56); GLUCOSE, FASTING 114 MG/DL (60-100); MAGNESIUM LEVEL 1.3 MG/DL (1.8-2.4); MB/CK RELATIVE INDEX 0.73 (< OR =4); POTASSIUM SERUM 3.4 MMOL/L (3.5-5.1); SODIUM LEVEL 130 MMOL/L (136-145); TOTAL PROTEIN 7.7 G/DL (5.7-8.2)
[2022-09-13 12:39] LABS: INR 0.89; PROTHROMBIN TIME 12.2 SECONDS (12.5-14.5)
[2022-09-13 12:40] LABS: PARTIAL THROMBOPLASTIN TIME 34.8 SECONDS (24.8-34.2)
[2022-09-13] MEDS: MAG SULF 1GM/100ML (MAG RUN) 1 GM in IV 1 EA IV SCH ×5 (13:18→14:50)
[2022-09-13 13:27] LABS: MB/CK RELATIVE INDEX 1.14 (< OR =4)
[2022-09-13] MEDS ORDERED: NS 1,000 ML IV ONE (14:40)
[2022-09-13 15:24] LABS: AMPHETAMINES LEVEL URINE NEGATIVE (NEGATIVE); BARBITURATES URINE NEGATIVE (NEGATIVE)
[2022-09-13 15:25] LABS: BENZODIAZEPINES URINE NEGATIVE (NEGATIVE); COCAINE METABOLITE URINE NEGATIVE (NEGATIVE); METHADONE URINE NEGATIVE (NEGATIVE); OPIATES URINE NEGATIVE (NEGATIVE); PHENCYCLIDINE URINE NEGATIVE (NEGATIVE)
[2022-09-13 15:26] LABS: CANNABINOIDS URINE POSITIVE (NEGATIVE)
[2022-09-13 15:47] LABS: RSV AMPLIFICATION NEGATIVE (NEGATIVE)
[2022-09-13] MEDS ORDERED: NORCO, ANEXSIA 5/325MG TABLET (HYDROcodone/ACETAMINOPHEN) PO ONE (16:15)
[2022-09-13] MEDS ORDERED: POTASSIUM CHLORIDE 10% LIQ 20MEQ/15ML UDC PO ONE ×2 (16:40→18:00)
[2022-09-13] MEDS ORDERED: LR 1,000 ML IV SCH (16:40)
[2022-09-13] MEDS ORDERED: MED REC IN PROGRESS XX SCH (17:05)
[2022-09-13] MEDS ORDERED: ISOVUE-370 76% 100ML VIAL As Ordered ONE (17:13)
[2022-09-13] MEDS ORDERED: IBUP-1621 PO (17:21)
[2022-09-13] MEDS ORDERED: MICO2CRE45 TOP (17:21)
[2022-09-13] MEDS ORDERED: ASPI81TA26 PO (17:21)
[2022-09-13] MEDS ORDERED: POTA1TAB24 PO (17:21)
[2022-09-13] MEDS ORDERED: NYST-38 SSP (17:21)
[2022-09-13] MEDS ORDERED: ATOR40TA75 PO (17:21)
[2022-09-13] MEDS ORDERED: HOME MED LIST COMPLETE! XX SCH (17:30)
[2022-09-13] MEDS ORDERED: OMEP40CA4 PO (17:51)
[2022-09-13 18:13] LABS: HEPATITIS B CORE ANTIBODY IGM NEGATIVE (NEGATIVE)
[2022-09-13 18:14] VITALS: BP 137/84; TEMP 97.8; O2SAT 99
[2022-09-13 18:49] LABS: ALKALINE PHOSPHATASE 136 U/L (46-116); ALT/SGPT 124 U/L (7.0-40); AST/SGOT 98 U/L (<34); BILIRUBIN,TOTAL 1.2 MG/DL (0.3-1.2); BLOOD UREA NITROGEN 16 MG/DL (9-23); CALCIUM LEVEL 9.2 MG/DL (8.5-10.1); CARBON DIOXIDE LEVEL 28 MMOL/L (20-31); CHLORIDE LEVEL 95 MMOL/L (98-107); CREATININE FOR GFR 1.07 MG/DL (0.70-1.30); GLOMERULAR FILTRATION RATE > 60.0 (>56); GLUCOSE, FASTING 122 MG/DL (60-100); POTASSIUM SERUM 3.4 MMOL/L (3.5-5.1); SODIUM LEVEL 132 MMOL/L (136-145); TOTAL PROTEIN 6.9 G/DL (5.7-8.2)
[2022-09-13] MEDS ORDERED: MAG SULF 1GM/100ML (MAG RUN) 1 GM in IV 1 EA IV ONE (19:30)
[2022-09-13] MEDS ORDERED: POTASSIUM CHLORIDE 10MEQ SR TABLET PO ONE (19:30)
[2022-09-13 19:55] VITALS: BP 123/66; TEMP 97.6; O2SAT 97
[2022-09-13] MEDS: METOPROLOL TART 12.5 MG PER 1/2 TAB PO SCH (20:19)
[2022-09-13] MEDS ORDERED: ACETAMINOPHEN 325 MG TAB PO ONE (22:15)
[2022-09-14] VITALS: BP 110/61; TEMP 98; O2SAT 96
[2022-09-14 03:54] VITALS: BP 115/62; TEMP 98.3; O2SAT 97
[2022-09-14 05:12] LABS: HEMATOCRIT 35.9 % (42.0-52.0); MEAN CORPUSCULAR HEMOGLOBIN 29.3 pg (27.0-33.0); MEAN CORPUSCULAR HGB CONC 34.3 g/dl (32.0-36.5); MEAN CORPUSCULAR VOLUME 85.5 fl (80.0-96.0); PLATELET COUNT, AUTOMATED 248 10^3/uL (150-450); WHITE BLOOD COUNT 6.3 10^3/uL (4.0-10.0)
[2022-09-14] MEDS ORDERED: ACETAMINOPHEN 325 MG TAB PO ONE (05:15)
[2022-09-14 05:33] LABS: HEMOGLOBIN 12.3 g/dl (13.5-17.5)
[2022-09-14] MEDS ORDERED: LIDOCAINE 5% (LIDODERM) PATCH TD ONE (05:35)
[2022-09-14 05:39] LABS: ALBUMIN 3.6 G/DL (3.2-5.2); ALKALINE PHOSPHATASE 119 U/L (46-116); ALT/SGPT 104 U/L (7.0-40); AST/SGOT 83 U/L (<34); BILIRUBIN,TOTAL 0.7 MG/DL (0.3-1.2); BLOOD UREA NITROGEN 13 MG/DL (9-23); CALCIUM LEVEL 9.2 MG/DL (8.5-10.1); CARBON DIOXIDE LEVEL 28 MMOL/L (20-31); CHLORIDE LEVEL 102 MMOL/L (98-107); CREATININE FOR GFR 0.89 MG/DL (0.70-1.30); GLOMERULAR FILTRATION RATE > 60.0 (>56); GLUCOSE, FASTING 107 MG/DL (60-100); MAGNESIUM LEVEL 1.8 MG/DL (1.8-2.4); POTASSIUM SERUM 4.2 MMOL/L (3.5-5.1); SODIUM LEVEL 136 MMOL/L (136-145); TOTAL PROTEIN 6.2 G/DL (5.7-8.2)
[2022-09-14] MEDS: MAG SULF 1GM/100ML (MAG RUN) 1 GM in IV 1 EA IV SCH ×2 (06:25→08:23)
[2022-09-14 08:09] VITALS: BP 132/73; TEMP 97.7; O2SAT 99
[2022-09-14] MEDS ORDERED: RA M500C PO (08:33)
[2022-09-14] MEDS ORDERED: POTA1TAB24 PO (08:41)
[2022-09-14] MEDS ORDERED: CLOPIDOGREL 75 MG TAB PO SCH (09:00)
[2022-09-14] MEDS ORDERED: ENOXAPARIN 40MG/0.4ML SYRINGE (J1650 PER 10MG) SC SCH (09:00)
[2022-09-14] MEDS ORDERED: PANTOPRAZOLE 40MG TAB (PROTONIX) PO SCH (09:00)
[2022-09-14] MEDS ORDERED: ATORVASTATIN 20 MG TAB PO SCH (09:00)
[2022-09-14] MEDS ORDERED: ASPIRIN 81MG ENTERIC TABLET PO SCH (09:00)
[2022-09-14 09:06] VITALS: BP 132/73
[2022-09-14] MEDS: METOPROLOL TART 12.5 MG PER 1/2 TAB PO SCH (09:06)
[2022-09-14 10:15] VITALS: BP_SYST 128; BP_SYST 141; BP_SYST 146; BP_DIAS 69; BP_DIAS 70; BP_DIAS 71
[2022-09-14] MEDS ORDERED: ASPI81TA26 PO (11:48)
[2022-09-14] MEDS ORDERED: NYST-38 SSP (11:48)
[2022-09-14] MEDS ORDERED: D3 +TAB PO (11:48)
[2022-09-14] MEDS ORDERED: OMEP40CA4 PO (11:48)
== END 2022-09-14 12:07 | disposition home or self-care (01) ==
LOC: M ED 10:02 → M PCU 16:32 → ENRESERV 16:47
PROVIDERS: ADMIT Internal Medicine; ATTEND Internal Medicine
DX: R55 Syncope and collapse (principal); I65.21 Occlusion and stenosis of right carotid artery; Z98.890 Other specified postprocedural states; E83.42 Hypomagnesemia; E87.6 Hypokalemia; R94.31 Abnormal electrocardiogram [ECG] [EKG]; E86.0 Dehydration; I25.10 Atherosclerotic heart disease of native coronary artery without angina pectoris; E78.5 Hyperlipidemia, unspecified; I10 Essential (primary) hypertension; Z95.1 Presence of aortocoronary bypass graft; F10.21 Alcohol dependence, in remission; N17.9 Acute kidney failure, unspecified; Z91.040 Latex allergy status; Z79.899 Other long term (current) drug therapy; Z79.82 Long term (current) use of aspirin; Z79.02 Long term (current) use of antithrombotics/antiplatelets; F17.210 Nicotine dependence, cigarettes, uncomplicated
CPT/HCPCS: 36415; 70450; 70486; 70496; 70498; 70551; 71045; 72125; 76705; 80047; 80048; 80053; 80076; 80307; 82077; 82550; 82553; 83735; 84443; 85025; 85027; 85610; 85730; 86705; 86709; 86803; 87340; 87631; 93005; 93041; 93306; 94760; 96365; 96366; 96372; 97161; 97165; 99285; J1650; J3475; Q9967

== ENCOUNTER 2022-11-30 12:47 | Emergency (ER) | payer OTHER ==
[~2022-11-30] VITALS: Ht 172.7 cm; Wt 75.6 kg
[~2022-11-30 12:47] MED LIST changes: +ASPI81TA26 PO; +ATOR40TA75 PO; +BACL5TAB2 PO; +CLOP75TA99 PO; +D3 +TAB PO; +FURO20TA2 PO; +IBUP-1621 PO; +MICO2CRE45 TOP; +OMEP40CA4 PO; +POTA1TAB24 PO; +RA M500C PO
[2022-11-30 14:50] LABS: BASO % 0.3 % (0.0-1.0); EOS % 0.1 % (0.0-3.0); HEMATOCRIT 37.5 % (42.0-52.0); HEMOGLOBIN 13.3 g/dl (13.5-17.5); LYMPH # 1.6 10^3/uL (1.5-5.0); LYMPH % 18.2 % (24.0-44.0); MEAN CORPUSCULAR HEMOGLOBIN 29.7 pg (27.0-33.0); MEAN CORPUSCULAR HGB CONC 35.5 g/dl (32.0-36.5); MEAN CORPUSCULAR VOLUME 83.7 fl (80.0-96.0); MONO # 0.7 10^3/uL (0.0-0.8); MONO % 7.3 % (2.0-8.0); NEUTROPHILS # 6.6 10^3/uL (1.5-8.5); NEUTROPHILS % 73.4 % (36.0-66.0); PLATELET COUNT, AUTOMATED 186 10^3/uL (150-450); RED BLOOD COUNT 4.48 10^6/uL (4.30-6.10)
[2022-11-30 15:11] LABS: ERYTHROCYTE SEDIMENTATION RATE 10 mm/hr (0-20)
[2022-11-30 15:15] LABS: BLOOD UREA NITROGEN 18 MG/DL (9-23); CALCIUM LEVEL 9.7 MG/DL (8.5-10.1); CARBON DIOXIDE LEVEL 26 MMOL/L (20-31); CHLORIDE LEVEL 98 MMOL/L (98-107); CREATININE FOR GFR 0.88 MG/DL (0.70-1.30); GLOMERULAR FILTRATION RATE > 60.0 (>56); GLUCOSE, FASTING 95 MG/DL (60-100); POTASSIUM SERUM 3.2 MMOL/L (3.5-5.1); SODIUM LEVEL 133 MMOL/L (136-145)
[2022-11-30] MEDS ORDERED: NS 1,000 ML IV ONE (16:20)
[2022-11-30] MEDS ORDERED: KCL 10MEQ/100ML SWI (KRUN) 10 MEQ in IV 1 EA IV ONE (16:20)
[2022-11-30] MEDS ORDERED: MORPHINE 4 MG/ML 1ML VIAL IV ONE (16:20)
[2022-11-30] MEDS ORDERED: ISOVUE-370 76% 100ML VIAL As Ordered ONE (16:47)
[2022-11-30 17:43] LABS: ETHYL ALCOHOL (ETHANOL) < 0.003 % (0.000-0.010)
[2022-11-30 17:45] LABS: ALBUMIN 3.8 G/DL (3.2-5.2); ALKALINE PHOSPHATASE 121 U/L (46-116); ALT/SGPT 140 U/L (7.0-40); AST/SGOT 124 U/L (<34); BILIRUBIN,DIRECT 0.5 MG/DL (<0.4); TOTAL PROTEIN 6.7 G/DL (5.7-8.2)
[2022-11-30 18:08] LABS: RSV AMPLIFICATION NEGATIVE (NEGATIVE)
[2022-11-30] MEDS ORDERED: KETO2CR TOP (18:57)
[2022-11-30] MEDS ORDERED: NYST-38 PO (18:57)
[2022-11-30 19:30] VITALS: BP 113/72; TEMP 98.5; O2SAT 98
== END 2022-11-30 19:31 | disposition home or self-care (01) ==
LOC: M ED 12:47
DX: K13.0 Diseases of lips (principal); B37.9 Candidiasis, unspecified; I10 Essential (primary) hypertension; E78.5 Hyperlipidemia, unspecified; K58.9 Irritable bowel syndrome, unspecified; F41.9 Anxiety disorder, unspecified; F10.10 Alcohol abuse, uncomplicated; Z95.5 Presence of coronary angioplasty implant and graft; K21.9 Gastro-esophageal reflux disease without esophagitis; F17.210 Nicotine dependence, cigarettes, uncomplicated; Z91.040 Latex allergy status; Z79.82 Long term (current) use of aspirin; Z79.899 Other long term (current) drug therapy
CPT/HCPCS: 70491; 80048; 80076; 82077; 82140; 83605; 85025; 85652; 86140; 87040; 87631; 96365; 96375; 99284; Q9967

== ENCOUNTER → 2023-03-22 | Outpatient (CLI) | payer OTHER ==
[~2023-03-22] MED LIST changes: -EFFE150C2 PO; +EFFE150C3 PO; +KETO2CR TOP; +NYST-38 PO
[2023-03-22 15:15] LABS: IRON (FE) 282 UG/DL (65-175); PERCENT SATURATION 83.7 % (19.7-50.0); TOTAL IRON BINDING CAPACITY 337 UG/DL (250-425)
[2023-03-22 15:40] LABS: HEPATITIS B SURFACE ANTIBODY POSITIVE (POSITIVE)
[2023-03-22 15:49] LABS: HIV 1&2 SCREEN NEGATIVE (NEGATIVE)
== END ==
LOC: M PLALAB 10:01
PROVIDERS: ATTEND Internal Medicine Infectious Disease
DX: R74.01 Elevation of levels of liver transaminase levels (principal)

== ENCOUNTER → 2023-04-19 | Outpatient (CLI) | payer MEDICARE, OTHER ==
[2023-04-19 15:27] LABS: ALBUMIN 3.6 G/DL (3.2-5.2); ALKALINE PHOSPHATASE 72 U/L (46-116); ALT/SGPT 17 U/L (7.0-40); AST/SGOT 13 U/L (<34); BILIRUBIN,DIRECT < 0.1 MG/DL (<0.4); BILIRUBIN,TOTAL 0.2 MG/DL (0.3-1.2); IRON (FE) 71 UG/DL (65-175); PERCENT SATURATION 23.4 % (19.7-50.0); TOTAL IRON BINDING CAPACITY 303 UG/DL (250-425); TOTAL PROTEIN 6.3 G/DL (5.7-8.2)
[2023-04-19 15:28] LABS: FERRITIN 41.2 NG/ML (10.5-307.3)
[2023-04-19 15:29] LABS: VITAMIN B12 LEVEL 430 PG/ML (211-911)
[2023-04-19 15:33] LABS: FOLATE > 24.0 NG/ML (>5.4)
[2023-04-25 16:08] LABS: FUNGITELL, SERUM 57 pg/mL (<60)
== END ==
LOC: M RAD 14:14
PROVIDERS: ATTEND Internal Medicine Infectious Disease
DX: G62.9 Polyneuropathy, unspecified (principal); R21 Rash and other nonspecific skin eruption; R74.01 Elevation of levels of liver transaminase levels; Z79.899 Other long term (current) drug therapy

== ENCOUNTER → 2023-08-21 | Outpatient (CLI) | payer MEDICARE, OTHER ==
[~2023-08-21] MED LIST changes: +DOXY-323 PO; -DOXY-443 PO
== END ==
LOC: M RAD 09:23
PROVIDERS: ATTEND Physician Assistant
DX: R10.11 Right upper quadrant pain (principal)